=== PATIENT | female | born 1950 | race Caucasian/White ===

== ENCOUNTER 2020-12-07 10:04 | Outpatient (REF) | payer MEDICARE, SELFPAY ==
--- NOTE | ~2020-12-07 | MM_ITS ---
EXAMINATION: MM SCREENING DIGITAL BREAST TOMOSYNTHESIS, BILATERAL CLINICAL INFORMATION: Screening. Asymptomatic. The lifetime risk of breast cancer based on the Tyrer-Cuzick Model is 8%. COMPARISON: Mammography: 12/02/2019, 11/03/2018, 10/16/2017 TECHNIQUE: Digital breast tomosynthesis is performed in both the craniocaudal and mediolateral oblique views along with computer-aided detection (CAD). Synthesized 2D images are generated from the tomosynthesis. Additional left view is provided. FINDINGS: There are scattered areas of fibroglandular density (ACR BI-RADS breast composition Category b). There is fine fibronodular parenchymal pattern similar to prior exams. There is no developing density or interval significant mass or architectural abnormality. No abnormal calcifications. There is a biopsy clip marker again noted anterior upper outer right breast. No significant changes. MM/MM tomosynthesis screening BI IMPRESSION: No mammographic evidence of malignancy. ASSESSMENT: BI-RADS 2: Benign RECOMMENDATION: Routine annual mammography screening. This patient's information was entered into a reminder system with a target due date for their next mammogram.
== END 2020-12-07 10:05 | disposition home or self-care (01) ==
LOC: HO.MAMMO 10:04
PROVIDERS: Visit Provider Nurse Practitioner Family
DX: Z12.31 Encounter for screening mammogram for malignant neoplasm of breast (principal)
CPT/HCPCS: 77063; 77067

== ENCOUNTER 2021-09-22 13:22 | Outpatient (REF) | payer MEDICARE, SELFPAY | END 2021-09-22 13:23 | disposition home or self-care (01) | LOC: HO.HMGCLDS 13:22 | PROVIDERS: Visit Provider Internal Medicine | DX: Z20.822 Contact with and (suspected) exposure to COVID-19 (principal) | CPT/HCPCS: C9803; U0003; U0005 ==

== ENCOUNTER 2023-08-25 13:02 | Outpatient (AMB) | payer MEDICARE, SELFPAY ==
--- NOTE | 2023-08-25 13:18 | MHC.OFFVIS ---
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 She reports with her daughter in law Essence. Pt reports she has unsteady gait. She's had a fall in the last six months. She reports minimal tremors. Her daughter in law states she has seen a significant decline in strength, but there is an increase in confusion and hallucinations. Allergies nickel [NICKEL] Allergy (Intermediate, Unverified 08/25/23 13:19) SWELLING, ITCHY ON CONTACT kendell Allergy (Unknown, Uncoded 08/25/23 13:19) rash, inflamation Medication List - Last Reconciled 08/25/23 by Samina Hurtado MD apixaban (Eliquis) 5 mg PO BID B-complex with vitamin C 1 tab PO DAILY carbidopa-levodopa 25-100 mg 1 tab PO QID cetirizine (Zyrtec) 10 mg PO DAILY PRN cholecalciferol (vitamin D3) 125 mcg PO DAILY clonazepam 0.5 mg PO DAILY coenzyme Q10 (Ultra CoQ10) 75 mg PO DAILY docusate sodium (Dulcolax Stool Softener (docusate)) 100 mg PO DAILY magnesium glycinate mg PO metoprolol tartrate 25 mg PO BID polyethylene glycol 3350 (Miralax) 17 grams PO DAILY simvastatin 10 mg PO DAILY vit C,E,Zn,Kf-xeecr0-fry-zeax 250-2.5-0.5 mg caps PO HPI HPI Comments History of Present Illness Details 73y/o right handed female comes for further management of Parkinsonism. Her daughter noticed slowness about 2 years ago and suspected parkinsons. she was seen by a neurologist and diagnosed with parkinsons. she was started on carbidopa/levodopa and was helping . But in the past 3-4 months looks like she is progressing . she was also diagnosed with cognitive difficulty. she denies any tremors she has short term memory issues for over 6 years and has progressed.She has word finding difficulties. She also has rare hallucinations - 2-3 years- more in the evenings, usually when she has intercurrnet infection SLeep- she has sleep talking and screams and yells. she feels like she did not have a sense of smell for many years. Mild depression or anxiety speech- softer. she did [facility] program She has drooling at night. she had swallowing eval and was told normal. Buts he has trouble chewing and swallowing. Handwriting is poor. she needs help with dressing and showering.she started having falls atleast 2 years ago. she had hip fracture over 1 year ago.she uses a walker now. Her gait was slow prior to that. [facility] Medical History (Updated 08/25/23 @ 15:13 by Samina Hurtado MD) REM behavioral disorder Hallucinations Cognitive change Falls Hyperlipidemia HTN (hypertension) Heart disease Atrial fibrillation Parkinsonism Surgical History (Updated 08/25/23 @ 13:36 by Meghana Tee CMA) History of cataract surgery History of hip replacement Hx of cholecystectomy Family History Mother No problems noted. Social History (Updated 08/25/23 @ 13:38 by Meghana Tee CMA) Caregiver staying overnight: Yes Housing: House Alcohol intake: former Patient Tobacco Use Status: Never used Tobacco Review of Systems Const Reports difficulty sleeping Neuro Reports confusion and Reports memory loss Psych Reports confusion and Reports memory loss Physical Exam Vital Signs: Last Vital Signs Pulse 63 08/25/23 13:20 Resp 17 08/25/23 13:20 BP 108/72 08/25/23 13:20 Pulse Ox 98 08/25/23 13:20 Oxygen Delivery Method Room Air 08/25/23 13:20 BMI result Body Mass Index 34.1 Const General: cooperative, comfortable, no acute distress and confusion Nutritional Appearance: obese Orientation/consciousness: patient oriented x3 and confusion Neuro Other: severe bradykinesia Moderately decreased blink and facial expression small steps, slow , decreased arm swings bilaterally - can walk without walker General: patient oriented x3, tone normal, moves all extremities, no focal motor deficits and confusion Cranial nerves: Yes Bilaterally intact EOM present, Yes Nystagmus not present, Yes Normal facial strength present and Yes Midline tongue present Motor exam (neuro): 5/5 motor strength present throughout and Normal motor muscle tone present throughout Deep tendon reflexes (DTR's): Right triceps reflex intensity grade: 1+, Left triceps reflex intensity grade: 1+, Rt Biceps (C5, C6): 1+, Left biceps reflex intensity grade: 1+, Right brachioradialis reflex intensity grade: 1+, Left brachioradialis reflex intensity grade: 1+, Right patellar reflex intensity grade: 1+ and Left patellar reflex intensity grade: 1+ Coordination: [id number] test normal Results Reviewed Results Reviewed: TELLO scan- January 2022 abnormal -decreased striatal activity Assessment & Plan Assessment & Plan (1) 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 Code(s): G20.C - Parkinsonism, unspecified (2) Cognitive change: Code(s): R41.89 - Other symptoms and signs involving cognitive functions and awareness (3) Hallucinations: Comment: rare and mild Code(s): R44.3 - Hallucinations, unspecified (4) REM behavioral disorder: Code(s): G47.52 - REM sleep behavior disorder Plan I will trial her on higher dose of sinemet 25/100 5 times a day Home PT and OT and clonazepam 0.5mg qhs for RBD Orders: [facility]errals [facility] Referral G20.C - Parkinsonism, unspecified Medications: New carbidopa-levodopa 25-100 mg 1 tab PO .5 times a day 150 tabs 5RF Coding Level of Care Code New Pt Level 4 (02889) Diagnoses Parkinsonism G20.C Cognitive change R41.89 Hallucinations R44.3 REM behavioral disorder G47.52
[2023-08-25 13:20] VITALS: BP 108/72; PULSE 63; RESP 17; O2SAT 98; BMI 34.1
== END 2023-08-25 14:16 | disposition home or self-care (01) ==
PROVIDERS: Visit Provider Psychiatry & Neurology Neurology
DX: G20.C Parkinsonism, unspecified (principal); R41.89 Other symptoms and signs involving cognitive functions and awareness; R44.3 Hallucinations, unspecified; G47.52 REM sleep behavior disorder
CPT/HCPCS: 99204

== ENCOUNTER → 2023-08-25 13:02 | Outpatient (BNVA) | payer MEDICARE, SELFPAY | PROVIDERS: Visit Provider Psychiatry & Neurology Neurology ==

== ENCOUNTER 2023-10-05 15:58 | Outpatient (REF) | payer MEDICARE, SELFPAY ==
[2023-10-05 16:02] LABS: MANUAL DIFF FLAG NO
[2023-10-05 16:06] LABS: Basophils Percent Auto 0.7 % (0-2); Eosinophils Absolute Auto 0.1 X10*3/uL (0.0-0.4); Eosinophils Percent Auto 1.1 % (0-4); Hemoglobin 12.6 g/dl (12.0-16.0); Imm Gran Abs Auto 0.04 X10*3/uL (0.00-0.03); Imm Gran Pct Auto 0.7 % (0.0-0.4); Lymphocytes Absolute Auto 1.4 X10*3/uL (1.2-4.9); Lymphocytes Percent Auto 25.6 % (20-40); Mean Corpuscular HGB Conc 33.2 g/dl (31.0-35.0); Mean Corpuscular Hemoglobin 28.6 pg (27.0-33.0); Mean Corpuscular Volume 86.4 fL (80.0-98.0); Mean Platelet Volume 10.4 fL (9.4-12.3); Monocytes Absolute Auto 0.4 X10*3/uL (0.1-1.2); Monocytes Percent Auto 7.6 % (2-11); Neutrophils Absolute Auto 3.5 x10*3/uL (2.0-8.3); Neutrophils Percent Auto 64.3 % (45-73); Platelet Count 187 X10*3/uL (160-400); White Blood Count 5.4 X10*3/uL (4.8-10.8)
[2023-10-05 16:28] LABS: Anion Gap 12 (12-20); Blood Urea Nitrogen 15 mg/dL (9-16); Calcium 8.6 mg/dL (8.4-10.2); Carbon Dioxide 26 mmol/L (22-29); Chloride 108 mmol/L (96-108); Estimated Glomerular Filt Rate > 60; Glucose Random 107 mg/dL (60-115); Potassium 3.9 mmol/L (3.3-5.1); Sodium 142 mmol/L (135-145)
== END 2023-10-05 15:59 | disposition home or self-care (01) ==
LOC: HO.HVNA 15:58
PROVIDERS: Visit Provider Nurse Practitioner Family
DX: R49.0 Dysphonia (principal); R41.0 Disorientation, unspecified; R53.83 Other fatigue
CPT/HCPCS: 36415; 80048; 85025

== ENCOUNTER 2023-10-11 12:20 | Outpatient (REF) | payer MEDICARE, SELFPAY ==
[2023-10-11 16:08] LABS: MANUAL DIFF FLAG NO
[2023-10-11 16:14] LABS: Basophils Percent Auto 0.6 % (0-2); Eosinophils Absolute Auto 0.1 X10*3/uL (0.0-0.4); Eosinophils Percent Auto 1.8 % (0-4); Hematocrit 38.8 % (37.0-47.0); Hemoglobin 12.8 g/dl (12.0-16.0); Imm Gran Abs Auto 0.03 X10*3/uL (0.00-0.03); Imm Gran Pct Auto 0.6 % (0.0-0.4); Lymphocytes Absolute Auto 1.3 X10*3/uL (1.2-4.9); Mean Corpuscular Hemoglobin 28.7 pg (27.0-33.0); Mean Platelet Volume 10.6 fL (9.4-12.3); Monocytes Absolute Auto 0.4 X10*3/uL (0.1-1.2); Monocytes Percent Auto 7.6 % (2-11); Neutrophils Absolute Auto 3.1 x10*3/uL (2.0-8.3); Neutrophils Percent Auto 63.4 % (45-73); Platelet Count 184 X10*3/uL (160-400); Red Blood Count 4.46 X10*6/uL (4.20-5.50); Red Cell Distribution Width 13.2 % (11.0-16.0); White Blood Count 4.9 X10*3/uL (4.8-10.8)
[2023-10-11 16:23] LABS: Anion Gap 12 (12-20); Blood Urea Nitrogen 19 mg/dL (9-16); Calcium 8.7 mg/dL (8.4-10.2); Carbon Dioxide 25 mmol/L (22-29); Chloride 111 mmol/L (96-108); Estimated Glomerular Filt Rate > 60; Glucose Random 94 mg/dL (60-115); Potassium 4.2 mmol/L (3.3-5.1); Sodium 144 mmol/L (135-145)
== END 2023-10-11 12:21 | disposition home or self-care (01) ==
LOC: HO.HVNA 12:20
PROVIDERS: PCP Nurse Practitioner Family; Visit Provider Psychiatry & Neurology Neurology
DX: R49.0 Dysphonia (principal); R41.0 Disorientation, unspecified; R53.83 Other fatigue
CPT/HCPCS: 36415; 80048; 85025

== ENCOUNTER 2023-10-14 12:00 | Outpatient (REF) | payer MEDICARE, SELFPAY ==
--- NOTE | ~2023-10-14 | XR_ITS ---
EXAMINATION: XR CHEST CLINICAL INFORMATION: Acute cough COMPARISON: None available. TECHNIQUE: 2 views of the chest were obtained. FINDINGS: The lungs are well expanded and clear. No pleural effusion. There is mild enlargement of the cardiac silhouette. The bones are diffusely demineralized. There is mild curve of the thoracic spine, convex left. XR/XR chest 2V IMPRESSION: No acute cardiopulmonary disease. Mild cardiomegaly.
== END 2023-10-14 12:01 | disposition home or self-care (01) ==
LOC: HO.XRAY 12:00
PROVIDERS: PCP Nurse Practitioner Family; Visit Provider Nurse Practitioner Adult Health
DX: R05.1 Acute cough (principal)
CPT/HCPCS: 71046

== ENCOUNTER 2023-10-22 09:44 | Outpatient (REF) | payer MEDICARE, SELFPAY ==
--- NOTE | ~2023-10-22 | MR_ITS ---
MRI OF THE BRAIN WITHOUT IV CONTRAST INDICATION: Parkinsonism. COMPARISON: None available. TECHNIQUE: Multiplanar multisequence MR imaging of the brain was obtained without IV contrast. FINDINGS: There is no hydrocephalus, extra-axial surface collection, or herniation. There is global cerebral volume loss and there is mild chronic microangiopathy. 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 The major flow voids at the skull base are preserved. There is no acute infarct on diffusion-weighted imaging. There is no intracranial hemorrhage on the gradient recalled echo acquisition. The midline structures are normal. The cerebellar tonsils are normally positioned. The cerebellum and brainstem are normal. The craniocervical junction is normal. Osseous marrow signal intensity is homogenous. Sebaceous cyst within the right occipital scalp. MR/MR head/brain wo con IMPRESSION: - No acute intracranial findings. 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 - There is global cerebral volume loss and there is mild chronic microangiopathy.
== END 2023-10-22 09:45 | disposition home or self-care (01) ==
LOC: HO.MRI 09:44
PROVIDERS: PCP Nurse Practitioner Family; Visit Provider Psychiatry & Neurology Neurology
DX: G20.C Parkinsonism, unspecified (principal)
CPT/HCPCS: 70551

== ENCOUNTER 2023-11-02 11:20 | Emergency (ER) | payer MEDICARE, SELFPAY ==
--- NOTE | ~2023-11-02 | XR_ITS ---
EXAMINATION: XR CHEST CLINICAL INFORMATION: Weakness. Cough. COMPARISON: Chest x-ray October 14, 2023 TECHNIQUE: 2 views of the chest were obtained. FINDINGS: Lungs are clear. No pulmonary vascular congestion. There is no pleural effusion. The heart size is normal. The cardiac and mediastinal contours are normal. There are calcifications of the thoracic aorta. There are multilevel degenerative changes of dorsal spine. XR/XR chest 2V IMPRESSION: Unremarkable examination.
[2023-11-02 12:22] VITALS: BP 100/60; BP 99/62; PULSE 70; RESP 18; TEMP 37.1; O2SAT 93; O2SAT 96; BMI 36.6
--- NOTE | 2023-11-02 12:36 | ED.WEAKNESS ---
HPI - Weakness General Chief complaint: Weakness Stated complaint: +COVID,WEAK,NOT EATING PER EMS Related Data Home Medications Medication Instructions Recorded Confirmed B-complex with vitamin C 1 tab PO DAILY 08/25/23 08/25/23 apixaban 5 mg tablet (Eliquis) 5 mg PO BID 08/25/23 08/25/23 cetirizine 10 mg capsule (Zyrtec) 10 mg PO DAILY PRN 08/25/23 08/25/23 cholecalciferol (vitamin D3) 125 125 mcg PO DAILY 08/25/23 08/25/23 mcg (5,000 unit) capsule clonazepam 0.5 mg tablet 0.5 mg PO DAILY 08/25/23 08/25/23 coenzyme Q10 75 mg capsule (Ultra 75 mg PO DAILY 08/25/23 08/25/23 CoQ10) docusate sodium 100 mg capsule 100 mg PO DAILY 08/25/23 08/25/23 (Dulcolax Stool Softener (docusate)) magnesium glycinate mg PO 08/25/23 08/25/23 metoprolol tartrate 25 mg tablet 25 mg PO BID 08/25/23 08/25/23 polyethylene glycol 3350 17 17 g PO DAILY 08/25/23 08/25/23 gram/dose oral powder (Miralax) simvastatin 10 mg tablet 10 mg PO DAILY 08/25/23 08/25/23 vit cap PO 08/25/23 08/25/23 C,E,zinc,Xq-dysxa-3-lutein-zeaxanthin 250 mg-2.5 mg-0.5 mg capsule Previous Rx's Medication Instructions Recorded carbidopa 25 mg-levodopa 100 mg 1 tab PO .5 times a day #150 tabs 08/25/23 tablet Allergies Allergy/AdvReac Type Severity Reaction Status Date / Time nickel [NICKEL] Allergy Intermediate SWELLING, Unverified 08/25/23 13:19 ITCHY ON CONTACT kendell Allergy Unknown rash, Uncoded 08/25/23 13:19 inflamation PMFSH Past Medical History Onset Date is defined in the Problem List Problems that require an onset date and time if occurred within 24 hrs of arrival to the ED Aortic Dissection and Rupture; Neurologic impairment; Cardiopulmonary Arrest; Endotracheal Intubation; Insertion or Replacement of Mechanical Circulatory Assist Device Medical History (Updated 10/29/23 @ 18:01 by IVELISSE Madrid) REM behavioral disorder Hallucinations Cognitive change Falls Hyperlipidemia HTN (hypertension) Heart disease Atrial fibrillation Parkinsonism Surgical History (Updated 08/25/23 @ 13:36 by Meghana Tee CMA) History of cataract surgery History of hip replacement Hx of cholecystectomy Family History Family History Mother No problems noted. Social History Social History (Updated 08/25/23 @ 13:38 by Meghana Tee CMA) Housing: House Alcohol intake: former Patient Tobacco Use Status: Never used Tobacco Physical Exam Vital Signs: Vital Signs: Last Vital Signs Temp 98.7 F 11/02/23 12:22 Pulse 70 11/02/23 12:22 Resp 18 11/02/23 12:22 BP 99/62 11/02/23 12:22 Pulse Ox 93 11/02/23 12:22 O2 Del Method Room Air 11/02/23 12:22 BMI result Body Mass Index 36.6 Course Course Course Narrative: This is an RME: Additional HPI, ROS, PE not included below will be deferred to primary provider. This is a 58-pycg-unw-female, hx of parkinsons, afib on eliquis, incontinence, nonambulatory, presenting to the emergency department for evaluation weakness. Patient was diagnosed with COVID last week. She has had increased Global weakness. also endorsing cough, hoarseness. Reports decreased appetite. Plan: labs, EKG, chest x-ray, further ER evaluation needed. Discharge Plan Discharge Prescriptions: No Action B-complex with vitamin C Tablet 1 tab PO DAILY magnesium glycinate 100 mg magnesium capsule PO cholecalciferol (vitamin D3) 125 mcg (5,000 unit) capsule 125 mcg PO DAILY docusate sodium [Dulcolax Stool Softener (dss)] 100 mg capsule 100 mg PO DAILY polyethylene glycol 3350 [Miralax] 17 gram/dose powder 17 g PO DAILY vit C,E,Zn,Us-jbvub3-rqj-zeax 250-2.5-0.5 mg capsule PO Zyrtec 10 mg capsule 10 mg PO DAILY PRN Ultra CoQ10 75 mg capsule 75 mg PO DAILY Eliquis 5 mg tablet 5 mg PO BID simvastatin 10 mg tablet 10 mg PO DAILY metoprolol tartrate 25 mg tablet 25 mg PO BID clonazepam 0.5 mg tablet 0.5 mg PO DAILY carbidopa-levodopa 25-100 mg tablet 1 tab PO .5 times a day Qty: 150 5RF
--- NOTE | 2023-11-02 12:39 | ECG_ITS ---
Test Reason : CHEST PAIN Blood Pressure : / mmHG Vent. Rate : 065 BPM Atrial Rate : 065 BPM P-R Int : 154 ms QRS Dur : 072 ms QT Int : 390 ms P-R-T Axes : 048 004 010 degrees QTc Int : 405 ms Normal sinus rhythm Low voltage QRS Nonspecific T wave abnormality Abnormal ECG When compared with ECG of 11-APR-2003 14:52, T wave inversion now evident in Anterior leads Referred By: Li Diana Electronically Signed By:Tj Dumont
[2023-11-02 13:31] LABS: MANUAL DIFF FLAG NO
[2023-11-02 13:33] LABS: Basophils Percent Auto 0.7 % (0-2); Eosinophils Absolute Auto 0.1 X10*3/uL (0.0-0.4); Eosinophils Percent Auto 1.4 % (0-4); Hemoglobin 13.5 g/dl (12.0-16.0); Imm Gran Abs Auto 0.02 X10*3/uL (0.00-0.03); Imm Gran Pct Auto 0.5 % (0.0-0.4); Lymphocytes Absolute Auto 1.1 X10*3/uL (1.2-4.9); Lymphocytes Percent Auto 24.7 % (20-40); Mean Corpuscular HGB Conc 33.8 g/dl (31.0-35.0); Mean Corpuscular Hemoglobin 28.8 pg (27.0-33.0); Mean Corpuscular Volume 85.5 fL (80.0-98.0); Mean Platelet Volume 9.6 fL (9.4-12.3); Monocytes Absolute Auto 0.6 X10*3/uL (0.1-1.2); Monocytes Percent Auto 14.3 % (2-11); Neutrophils Absolute Auto 2.6 x10*3/uL (2.0-8.3); Neutrophils Percent Auto 58.4 % (45-73); Platelet Count 165 X10*3/uL (160-400); Red Blood Count 4.68 X10*6/uL (4.20-5.50); Red Cell Distribution Width 13.2 % (11.0-16.0); White Blood Count 4.4 X10*3/uL (4.8-10.8)
[2023-11-02 13:49] LABS: Alanine Aminotransferase 17 U/L (0-31); Albumin Level 3.9 g/dL (3.5-5.0); Alkaline Phosphatase 88 U/L (39-117); Anion Gap 12 (12-20); Aspartate Amino Transferase 19 U/L (5-31); Bilirubin Direct < 0.2 mg/dL (0.0-0.5); Bilirubin Total 0.2 mg/dL (0.0-1.0); Blood Urea Nitrogen 26 mg/dL (9-16); Calcium 9.4 mg/dL (8.4-10.2); Carbon Dioxide 28 mmol/L (22-29); Chloride 108 mmol/L (96-108); Creatinine Clr Calc Pharmacy 60.8; Estimated Glomerular Filt Rate > 60; Glucose Random 100 mg/dL (60-115); Potassium 3.9 mmol/L (3.3-5.1); Sodium 144 mmol/L (135-145); Total Protein 7.4 g/dL (6.5-8.0)
[2023-11-02 14:01] LABS: Troponin-I High Sensitivity < 2.7 ng/L (<3.5-17.0)
[2023-11-02 14:09] LABS: Influenza A PCR NEGATIVE (Negative); Influenza B PCR NEGATIVE (Negative); Resp Syncy Virus RNA Qual PCR NEGATIVE (Negative); SARS COV2 PCR INHOUSE POSITIVE (Negative)
[2023-11-02 17:56] VITALS: BP 131/73; PULSE 69; RESP 18; TEMP 36.6; O2SAT 96
--- NOTE | 2023-11-02 17:58 | PC.NURSE ---
Patient tested positive for COVID on wednesday and since then has been feeling increasingly weak. Patient spoke with her PCP today who recommended that the patient come in for fluids. Patient resting in wheelchair at this time calm and cooperative with staff. Patient speaking in full sentences, breathing evenly, no s/s of distress at this time.
[2023-11-03] VITALS: O2SAT 96
--- NOTE | 2023-11-03 00:34 | ED_ITS ---
HPI - General Adult General Chief complaint: Weakness Stated complaint: +COVID,WEAK,NOT EATING PER EMS Time Seen by Provider: 11/03/23 00:11 History of Present Illness HPI narrative: Patient is a 73-year-old female with a history of atrial fibrillation currently on Eliquis history of Parkinson's on carbidopa levodopa. Presented today with having coughing congestion generalized malaise. Patient vaccinated for COVID x2 with a booster. Patient from home. Decreased p.o. intake. [place] extremely tired. No nausea no vomiting. Related Data Home Medications Medication Instructions Recorded Confirmed B-complex with vitamin C 1 tab PO DAILY 08/25/23 08/25/23 apixaban 5 mg tablet (Eliquis) 5 mg PO BID 08/25/23 08/25/23 cetirizine 10 mg capsule (Zyrtec) 10 mg PO DAILY PRN 08/25/23 08/25/23 cholecalciferol (vitamin D3) 125 125 mcg PO DAILY 08/25/23 08/25/23 mcg (5,000 unit) capsule clonazepam 0.5 mg tablet 0.5 mg PO DAILY 08/25/23 08/25/23 coenzyme Q10 75 mg capsule (Ultra 75 mg PO DAILY 08/25/23 08/25/23 CoQ10) docusate sodium 100 mg capsule 100 mg PO DAILY 08/25/23 08/25/23 (Dulcolax Stool Softener (docusate)) magnesium glycinate mg PO 08/25/23 08/25/23 metoprolol tartrate 25 mg tablet 25 mg PO BID 08/25/23 08/25/23 polyethylene glycol 3350 17 17 g PO DAILY 08/25/23 08/25/23 gram/dose oral powder (Miralax) simvastatin 10 mg tablet 10 mg PO DAILY 08/25/23 08/25/23 vit cap PO 08/25/23 08/25/23 C,E,zinc,Sa-lwdxb-0-lutein-zeaxanthin 250 mg-2.5 mg-0.5 mg capsule Previous Rx's Medication Instructions Recorded carbidopa 25 mg-levodopa 100 mg 1 tab PO .5 times a day #150 tabs 08/25/23 tablet Allergies Allergy/AdvReac Type Severity Reaction Status Date / Time nickel [NICKEL] Allergy Intermediate SWELLING, Unverified 08/25/23 13:19 ITCHY ON CONTACT kendell Allergy Unknown rash, Uncoded 08/25/23 13:19 inflamation Review of Systems 2 Review of Systems: Positive coughing congestion upper respiratory symptoms Yes all other systems are reviewed and are negative [facility] Past Medical History Attestation statement: The following information was validated with the patient. Onset Date is defined in the Problem List Problems that require an onset date and time if occurred within 24 hrs of arrival to the ED Aortic Dissection and Rupture; Neurologic impairment; Cardiopulmonary Arrest; Endotracheal Intubation; Insertion or Replacement of Mechanical Circulatory Assist Device Medical History REM behavioral disorder Hallucinations Cognitive change Falls Hyperlipidemia HTN (hypertension) Heart disease Atrial fibrillation Parkinsonism Surgical History History of cataract surgery History of hip replacement Hx of cholecystectomy Family History Family History Mother No problems noted. Social History Social History Housing: House Alcohol intake: former Patient Tobacco Use Status: Never used Tobacco Advance Directives: No Advance Directives Information Provided: Yes Physical Exam ED Vital Signs: Vital Signs - 24 hr 11/02/23 12:22 11/02/23 17:56 Temperature 98.7 F 97.8 F Pulse Rate 70 69 Respiratory Rate 18 18 Blood Pressure 99/62 131/73 Pulse Oximetry 93 96 Oxygen Delivery Method Room Air Room Air BMI result Body Mass Index 36.6 Appearance: Alert. Oriented X3. No acute distress. Eyes: Pupils equal, round and reactive to light. ENT: Pharynx normal. Neck: Normal inspection. Neck supple. No lymph nodes noted. No crepitus CVS: Normal heart rate and rhythm. Pulses normal. Normal S1 and S2 Respiratory: No respiratory distress. Breath sounds normal. No Wheezing. No rales Abdomen: Soft and nontender. No rigidity. No distention. good BS x4 Skin: Skin warm and dry. Normal skin color. Normal skin turgor. Extremities: No lower extremity edema. Neurovascular intact to all extremities. No Lacerations. No Rash Neuro: Oriented X 3. No motor deficit. No sensory deficit. Moving all extermities. No slurred speech Medical Decision Making Medical Decision Making [facility] Narrative: Patient well-appearing O2 sat is 96% on room air. Lungs are clear. My interpretation patient's chest x-ray was grossly negative for any acute evidence of pneumonia. No pneumothorax. My interpretation patient's EKG showed a sinus rhythm heart rate is 65 MN QRS QTC within normal limits there is nonspecific diffuse T-wave flattening noted. Patient's COVID test came back positive. Likely the cause of patient's generalized malaise coughing upper respiratory symptoms. Her O2 sat is normal she is vaccinated. A long discussion was made with patient concerning the pros and cons of Paxlovid over it in setting of patient being on multitude of medication. Differential Diagnosis Differential Diagnoses: The differential diagnosis associated with the presentation includes COVID flu RSV dehydration Admission/Observation Consideration of admission/observation: Escalation of care including admission/observation considered Patient will rehydrate at home. Lab Data [facility] Lab Attestation statement: I reviewed the patient's lab results. 11/02/23 13:22 11/02/23 13:22 Labs: Lab Results 11/02/23 Range/Units 13:22 WBC 4.4 L (4.8-10.8) X10*3/uL RBC 4.68 (4.20-5.50) X10*6/uL Hgb 13.5 (12.0-16.0) g/dl Hct 40.0 (37.0-47.0) % MCV 85.5 (80.0-98.0) fL MCH 28.8 (27.0-33.0) pg MCHC 33.8 (31.0-35.0) g/dl RDW 13.2 (11.0-16.0) % Plt Count 165 (160-400) X10*3/uL MPV 9.6 (9.4-12.3) fL Immature Gran % (Auto) 0.5 H (0.0-0.4) % Neut % (Auto) 58.4 (45-73) % Lymph % (Auto) 24.7 (20-40) % [place] % (Auto) 14.3 H (2-11) % Eos % (Auto) 1.4 (0-4) % Baso % (Auto) 0.7 (0-2) % Lymph # (Auto) 1.1 L (1.2-4.9) X10*3/uL [place] # (Auto) 0.6 (0.1-1.2) X10*3/uL Eos # (Auto) 0.1 (0.0-0.4) X10*3/uL Baso # (Auto) 0.0 (0.0-0.2) X10*3/uL Abs Immat Gran (auto) 0.02 (0.00-0.03) X10*3/uL Absolute Neuts (auto) 2.6 (2.0-8.3) x10*3/uL Absolute Nucleated RBC 0.000 (0.0-0.012) X10*3/uL Nucleated RBC % (auto) 0.0 (0.0-0.2) /100WBC Sodium 144 (135-145) mmol/L Potassium 3.9 (3.3-5.1) mmol/L Chloride 108 (96-108) mmol/L Carbon Dioxide 28 (22-29) mmol/L Anion Gap 12 (12-20) BUN 26 H (9-16) mg/dL Creatinine 0.85 (0.5-1.4) mg/dL Estim Creat Clear Calc 60.8 Estimated GFR > 60 Random Glucose 100 (60-115) mg/dL Calcium 9.4 D (8.4-10.2) mg/dL Total Bilirubin 0.2 (0.0-1.0) mg/dL Direct Bilirubin < 0.2 (0.0-0.5) mg/dL AST 19 (5-31) U/L ALT 17 (0-31) U/L Alkaline Phosphatase 88 (39-117) U/L Troponin I High Sens < 2.7 (<3.5-17.0) ng/L Total Protein 7.4 (6.5-8.0) g/dL Albumin 3.9 (3.5-5.0) g/dL Influenza Type A (PCR) NEGATIVE (Negative) Influenza Type B (PCR) NEGATIVE (Negative) RSV RNA Qual (PCR) NEGATIVE (Negative) SARS-CoV-2 RNA (RT-PCR) POSITIVE A (Negative) Independent Interpretation I performed an independent interpretation of an: EKG (EKG showed a sinus pattern heart rate is 60 MN QRS QTC within normal limits is diffuse T-wave flattening noted) and Plain X-Ray (Chest x-ray was negative) Radiology Impression Discussion of test interpretation with radiology: I have reviewed the radiologist's reading. Chronic Conditions Parkinson's, atrial fibrillation Discharge Plan Discharge Clinical Impression: COVID Patient Disposition: Home, Self-Care Instructions: COVID-19 (Coronavirus Disease 2019) (ED) Prescriptions: No Action B-complex with vitamin C Tablet 1 tab PO DAILY magnesium glycinate 100 mg magnesium capsule PO cholecalciferol (vitamin D3) 125 mcg (5,000 unit) capsule 125 mcg PO DAILY docusate sodium [Dulcolax Stool Softener (dss)] 100 mg capsule 100 mg PO DAILY polyethylene glycol 3350 [Miralax] 17 gram/dose powder 17 g PO DAILY vit C,E,Zn,Yg-ewurs8-kvv-zeax 250-2.5-0.5 mg capsule PO Zyrtec 10 mg capsule 10 mg PO DAILY PRN Ultra CoQ10 75 mg capsule 75 mg PO DAILY Eliquis 5 mg tablet 5 mg PO BID simvastatin 10 mg tablet 10 mg PO DAILY metoprolol tartrate 25 mg tablet 25 mg PO BID clonazepam 0.5 mg tablet 0.5 mg PO DAILY carbidopa-levodopa 25-100 mg tablet 1 tab PO .5 times a day Qty: 150 5RF Referrals: Physician,Gale J [Primary Care Provider] - 11/05/23
--- NOTE | 2023-11-03 01:57 | PC.NURSE ---
pt ambulated with steady gait. daughter Nohelia called and reviewed pt care and that she is ready for pickling grader
== END 2023-11-03 02:00 | disposition home or self-care (01) ==
PROVIDERS: Physician Assistant Medical; Emergency Provider Emergency Medicine Emergency Medical Services
DX: U07.1 COVID-19 (principal); R07.9 Chest pain, unspecified; R05.9 Cough, unspecified; R53.1 Weakness; I48.91 Unspecified atrial fibrillation; G20.A1 Parkinson's disease without dyskinesia, without mention of fluctuations; I10 Essential (primary) hypertension; E78.5 Hyperlipidemia, unspecified; Z79.01 Long term (current) use of anticoagulants
CPT/HCPCS: 0241U; 36415; 71046; 80048; 80076; 84484; 85025; 93005; 99283; 99284

== ENCOUNTER → 2023-11-02 12:39 | Outpatient (BNV) | payer MEDICARE, SELFPAY | PROVIDERS: Visit Provider Internal Medicine Cardiovascular Disease | DX: R94.31 Abnormal electrocardiogram [ECG] [EKG] (principal) | CPT/HCPCS: 93010 ==

== ENCOUNTER 2024-01-11 09:08 | Outpatient (AMB) | payer MEDICARE, SELFPAY ==
--- NOTE | 2024-01-11 09:10 | MHC.OFFVIS ---
Intake Vital Signs 01/11/24 09:11 Height 5 ft 2 in BP 112/68 Blood Pressure Location Rt brachial Position Sitting Pulse 72 Pulse Source Pulse Oximeter Pulse Oximetry (%) 92 Oxygen Delivery Method Room Air Intake Visit Reasons: 3month follow up Parkinsons-LVM Intake Note: Pt presents for a 4 month follow up for cognitive changes. Philosophy Instructor Required: No Allergies nickel [NICKEL] Allergy (Intermediate, Unverified 01/11/24 09:10) SWELLING, ITCHY ON CONTACT kendell Allergy (Unknown, Uncoded 01/11/24 09:10) rash, inflamation HPI HPI Comments History of Present Illness Details 73y/o right handed female comes for follow up of Parkinsonism. she tested positive for COVID Oct 30 and she was very weak and could not stand or walk. she went to ER , CXR was negative for pneumonia .she had televisit with her PCP - was given antibiotics, prednisone for persistent cough, then she had UTI which was treated with antibiotics. She has been better for past 2 weeks but still has dyspnea with exercise. Parkinsons has been same.she still has sundowning. when she had COVID her hallucinations worsened but better now. She could not take clonazepam as it was very sedating still has RBD Previous History-Her daughter noticed slowness about 2 years ago and suspected parkinsons. she was seen by a neurologist and diagnosed with parkinsons. she was started on carbidopa/levodopa and was helping . But in the past 3-4 months looks like she is progressing . she was also diagnosed with cognitive difficulty. she denies any tremors she has short term memory issues for over 6 years and has progressed.She has word finding difficulties. She also has rare hallucinations - 2-3 years- more in the evenings, usually when she has intercurrnet infection SLeep- she has sleep talking and screams and yells. she feels like she did not have a sense of smell for many years. Mild depression or anxiety speech- softer. she did LOUD program She has drooling at night. she had swallowing eval and was told normal. But she has trouble chewing and swallowing. Handwriting is poor. she needs help with dressing and showering.she started having falls atleast 2 years ago. she had hip fracture over 1 year ago.she uses a walker now. Her gait was slow prior to that. [facility] Medical History REM behavioral disorder Hallucinations Cognitive change Falls Hyperlipidemia HTN (hypertension) Heart disease Atrial fibrillation Parkinsonism Surgical History History of cataract surgery History of hip replacement Hx of cholecystectomy Family History Mother No problems noted. Social History Caregiver staying overnight: Yes Housing: House Alcohol intake: former Patient Tobacco Use Status: Never used Tobacco Physical Exam Vital Signs: Last Vital Signs Pulse 72 01/11/24 09:11 BP 112/68 01/11/24 09:11 Pulse Ox 92 01/11/24 09:11 Oxygen Delivery Method Room Air 01/11/24 09:11 Const General: cooperative, comfortable and no acute distress Nutritional Appearance: obese Orientation/consciousness: patient oriented x3 Neuro Other: moderate bradykinesia Mildly decreased blink and facial expression with walker- slow , good stride and turning General: patient oriented x3, tone normal, moves all extremities and no focal motor deficits Cranial nerves: Yes Bilaterally intact EOM present, Yes Nystagmus not present, Yes Normal facial strength present and Yes Midline tongue present Motor exam (neuro): 5/5 motor strength present throughout and Normal motor muscle tone present throughout Coordination: [id number] test normal Assessment & Plan Assessment & Plan (1) 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
[2024-01-11 09:11] VITALS: BP 112/68; PULSE 72; O2SAT 92
== END 2024-01-11 09:50 | disposition home or self-care (01) ==
PROVIDERS: PCP Nurse Practitioner Family; Visit Provider Psychiatry & Neurology Neurology
DX: G20.C Parkinsonism, unspecified (principal); R41.89 Other symptoms and signs involving cognitive functions and awareness; R44.3 Hallucinations, unspecified; G47.52 REM sleep behavior disorder
CPT/HCPCS: 99214

== ENCOUNTER → 2024-01-11 09:08 | Outpatient (BNVA) | payer MEDICARE, SELFPAY | PROVIDERS: PCP Nurse Practitioner Family; Visit Provider Psychiatry & Neurology Neurology | DX: G20.C Parkinsonism, unspecified (principal); R41.89 Other symptoms and signs involving cognitive functions and awareness; R44.3 Hallucinations, unspecified; G47.52 REM sleep behavior disorder | CPT/HCPCS: 99212 ==

== ENCOUNTER 2024-02-24 14:13 | Outpatient (REF) | payer MEDICARE, SELFPAY | END 2024-02-24 14:14 | disposition home or self-care (01) | LOC: HO.LAB 14:13 | PROVIDERS: PCP Registered Nurse; Visit Provider Internal Medicine | DX: R06.02 Shortness of breath (principal); I48.0 Paroxysmal atrial fibrillation | CPT/HCPCS: 36415; 83880; 99202 ==

== ENCOUNTER 2024-02-24 14:13 | Outpatient (AMB) | payer MEDICARE, SELFPAY ==
[2024-02-24 14:20] VITALS: BP 140/64; PULSE 69; BMI 33.8
--- NOTE | 2024-02-24 14:20 | MHC.OFFVIS ---
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/josephine afib Pantomimist Required: No Accompanied by: Other Relationship Allergies nickel [NICKEL] Allergy (Intermediate, Unverified 01/11/24 09:10) SWELLING, ITCHY ON CONTACT kendell Allergy (Unknown, Uncoded 01/11/24 09:10) rash, inflamation Medication List - Last Reconciled 02/24/24 by Jr Spence MD apixaban (Eliquis) 5 mg PO BID B-complex with vitamin C 1 tab PO DAILY carbidopa-levodopa 25-100 mg 1 tab PO .5 times a day cetirizine (Zyrtec) 10 mg PO DAILY PRN cholecalciferol (vitamin D3) 125 mcg PO DAILY coenzyme Q10 (Ultra CoQ10) 75 mg PO DAILY docusate sodium (Dulcolax Stool Softener (docusate)) 100 mg PO DAILY ipratropium-albuterol 0.5 mg-3 mg(2.5 mg base)/3 mL 3 mL inhalation Q4-6H PRN magnesium glycinate mg PO metoprolol tartrate 25 mg PO BID polyethylene glycol 3350 (Miralax) 17 grams PO DAILY simvastatin 10 mg PO DAILY vit C,E,Zn,Ic-scohq3-wlu-zeax 250-2.5-0.5 mg caps PO HPI Comments Details: Barbara is here for consultation regarding possible cardiac etiology for her wheezing. [facility] documentation reviewed. It seems that in 2020, she had atrial fibrillation. Then went for a BULMARO but during the procedure, she spontaneously converted from atrial fibrillation to sinus rhythm. Hence did not have to have cardioversion. After that, she has been kept on beta-blockers and Eliquis. Few months back, it seems that she had COVID x2. After that, she has been having sensations of wheezing. Frequent coughing. Some shortness of breath. Additionally, sensations of swelling in her legs as well as abdomen. Apart from atrial fibrillation, no other cardiac history. She comes in a wheelchair. Minimal ambulation. Listed to have Parkinson's as well. [facility] Medical History REM behavioral disorder Hallucinations Cognitive change Falls Hyperlipidemia HTN (hypertension) Heart disease Atrial fibrillation Parkinsonism Surgical History History of cataract surgery History of hip replacement Hx of cholecystectomy Family History Mother No problems noted. Social History Caregiver staying overnight: Yes Housing: House Alcohol intake: former Patient Tobacco Use Status: Never used Tobacco Review of Systems Const Denies chills, Denies fatigue, Denies fever(s), Denies frequent falls, Denies weakness, Denies weight gain and Denies weight loss ENT Denies dizziness Card Denies chest pain, Denies leg edema, Denies lightheadedness, Denies palpitations, Denies dyspnea, Denies dyspnea on exertion and Denies orthopnea Resp Denies cough, Denies dyspnea and Denies dyspnea on exertion GI Denies bloating and Denies change in bowel habits Musc Denies muscle weakness, Denies numbness and Denies tingling Neuro Denies dizziness, Denies frequent falls, Denies numbness, Denies tingling and Denies weakness Endo Denies fatigue and Denies palpitations Physical Exam Vital Signs: Last Vital Signs Pulse 69 02/24/24 14:20 BP 140/64 H 02/24/24 14:20 BMI result Body Mass Index 33.8 Const General: comfortable and no acute distress Orientation/consciousness: patient oriented x3 HEENT Other: Unremarkable Head: Yes normal to inspection Neck Neck: Yes normal visual inspection Chest Chest palpation & inspection: normal inspection of the chest Resp Auscultation: clear to auscultation bilaterally Cardio Palpation: normal PMI Heart sounds: S1 normal heart sound present, S2 normal heart sound present, no gallops, no murmurs and no rubs GI Palpation (GI): Soft to palpation Back/Spine/Pelvis Other: unremarkable Skin General skin exam: no rashes or lesions noted Neuro General: patient oriented x3 Extrem Other: Trace to 1+ edema General: Yes normal to inspection Psych Mental Status: mental status grossly normal Assessment & Plan Assessment & Plan (1) Shortness of breath: Code(s): R06.02 - Shortness of breath Category: Medical Plan: Suspect more likely respiratory in nature. Unremarkable chest x-ray. From a cardiac standpoint, get an echocardiogram and cardiac BNP. Try low-dose diuretics. (2) Paroxysmal atrial fibrillation: Code(s): I48.0 - Paroxysmal atrial fibrillation Category: Medical Plan: Continue beta-blockers and Eliquis. Plan Discussed with daughter/[id number]-wn-gqv who came for appointment. Orders: Orders CA echo transthoracic complete Today R06.02 - Shortness of breath B Type Natriuretic Peptide Today I50.9 - Heart failure, unspecified Medications: New furosemide (Lasix) as needed for wheezing, leg/abdominal swelling. 20 mg PO DAILY PRN 90 tabs 3RF edema Coding Level of Care Code New Pt Level 4 (37276) Diagnoses Shortness of breath R06.02 Paroxysmal atrial fibrillation I48.0
== END 2024-02-24 14:45 | disposition home or self-care (01) ==
PROVIDERS: PCP Registered Nurse; Referring Provider Registered Nurse; Visit Provider Internal Medicine
DX: R06.02 Shortness of breath (principal); I48.0 Paroxysmal atrial fibrillation
CPT/HCPCS: 99204

== ENCOUNTER → 2024-03-22 14:57 | Outpatient (REF) | payer MEDICARE, SELFPAY ==
--- NOTE | 2024-03-22 15:08 | CA_ITS ---
Transthoracic Echocardiogram Patient (Last, First, Middle): Barbara Bagley E Gender: Female Date of : 1950 Age: 73 Procedure Date: 03/22/2024 Procedure Type: Transthoracic Echocardiogram Location: OP Height: 157.48 cm Weight: 83.92 kg BSA: 1.85 m2 Heart Rate: 74 bpm BP: 115 / 68 mmHg Denial Management Representative: SB Referring MD: Jr Spence MD Sales And Marketing Analyst: Sherwin Ricardo MD Symptoms: R06.02 - Shortness of breath Study Quality: Technically Difficult ECG Rhythm: Sinus Conclusions: - 1. Normal LV ejection fraction 55-60% with impaired relaxation filling pattern 2. Poorly visualized cardiac valves with cardiac valvular Doppler is within normal limits 3. Normal measured RV systolic pressure 4. Technically limited study Findings Procedure Information Contrast agent, definity, is being given per protocol without apparent complications. The quality of the study was technically difficult. The study quality is limited by patients body habitus. Left Ventricle The left ventricle was not well visualized. The visually estimated ejection fraction is between 55-60%. Regional wall motion abnormalities can not be excluded due to suboptimal endocardial definition. Spectral Doppler is indicative of an impaired relaxation filling pattern. E/E prime ratio is between 8 and 15 consistent with indeterminate filling pressures. Right Ventricle The right ventricle was not well visualized. Atria The left atrium was not well visualized. Interatrial shunt cannot be excluded. The right atrium was not well visualized. Aortic Valve The aortic valve was not well visualized. There is no aortic valve stenosis. There is no aortic valve regurgitation. Mitral Valve The mitral valve was not well visualized. There is no mitral valve regurgitation. There is no mitral valve stenosis. Pulmonic Valve The pulmonic valve was not well visualized. Tricuspid Valve The tricuspid valve was not well visualized. There is trace tricuspid valve regurgitation. The right ventricular systolic pressure is normal. The right ventricular systolic pressure is 30 mmHg. Normal right atrial pressure. There is no evidence of pulmonary hypertension. Great Vessels The pulmonary artery was not well visualized. Venous The inferior vena cava is normal in size and collapses greater than 50% with inspiration. Pericardium/Pleural The pericardium was not well visualized. Prior Study Comparison No prior study available for comparison. Measurements 2D Linear Measurements IVSd: 1.00 0.6-0.9/0.6-1.0 cm LVIDd: 4.86 3.9-5.3/4.2-5.9 cm LVIDd Index: 2.63 2.4-3.2/2.2-3.1 cm/m2 LVIDs: 2.97 2.0-3.6 cm LVPWd: 0.85 0.7-1.1 cm Ao Root: 1.00 2.1-3.5 cm LA Diam: 3.20 2.7-3.8/3.0-4.0 cm LAIDs Index: 1.73 1.5-2.3 cm/m2 LV Mass: 194.81 67-162/88-224 g LV Mass Index: 105.30 43-95/49-115 g/m2 LVOT Diam: 2.00 3.0+(-)1.3 cm 2D Systolic Function EF 4C: 59.00 >55% EF 2C: 59.00 >55% EF BiP: 58.30 >55% Mitral Valve MV Pk E: 0.77 MV PK A: 0.93 MV Decel Time: 188.00 E/A: 0.80 E'Lateral: 7.18 E'Medial: 10.70 E/E' Med: 7.20 E/E' Lat: 10.70 PHT: 55.00 MVA PHT: 4.00 Decel Kimble: 4.07 Aortic Valve AoV Pk Long: 1.16 AoV Pk Grad: 5.00 WEST: 2.90 LVOT LVOT Pk Long: 1.05 LVOT Mn Long: 0.75 LVOT VTI: 0.21 LVOT Pk Grad: 4.00 LVOT Mn Grad: 3.00 LVOT Diam: 2.00 LVOT Area: 3.14 Diastolic Function MV Pk E: 0.77 MV Pk A: 0.93 E/A: 0.80 E'Medial: 10.70 E/E' Med: 7.20 E' Laterial: 7.18 E/E' Lat: 10.70 Right Ventricle TAPSE (mm): 25.60 TVS' Long: 18.60 Tricuspid Valve TR Pk Long: 2.59 TR Pk Grad: 27.00 RA Press: 3.00 RVSP: 30.00 Great Vessels Aorta Ao Root-2D: 1.00 2.0-3.7 cm Sinus of Valsalva: 2.80 2.0-3.5 cm Ao Asc: 3.50 2.1-3.4 cm Pulmonary Valve PV Pk Long: 0.95 Peak PV Grad: 4.00 Updated in Other Vendor System with Status of Final Sherwin Ricardo MD electronically signed on 03/23/2024 12:51:18 PM with status of Final
[2024-03-22 17:48] LABS: B Type Natriuretic Peptide 63 pg/mL (<100)
[2024-03-22 18:49] LABS: Anion Gap 16 (12-20); Blood Urea Nitrogen 11 mg/dL (9-16); Calcium 9.1 mg/dL (8.4-10.2); Carbon Dioxide 25 mmol/L (22-29); Chloride 105 mmol/L (96-108); Estimated Glomerular Filt Rate > 60; Glucose Random 119 mg/dL (60-115); Potassium 3.2 mmol/L (3.3-5.1); Sodium 143 mmol/L (135-145)
== END ==
LOC: HO.CARD 14:57
PROVIDERS: PCP Registered Nurse; Visit Provider Internal Medicine
DX: I48.0 Paroxysmal atrial fibrillation (principal); R06.02 Shortness of breath
CPT/HCPCS: 36415; 80048; 83880; 93306; Q9957

== ENCOUNTER → 2024-03-22 15:08 | Outpatient (BNV) | payer MEDICARE, SELFPAY | PROVIDERS: PCP Registered Nurse; Visit Provider Internal Medicine Cardiovascular Disease | DX: R06.02 Shortness of breath (principal) | CPT/HCPCS: 93306 ==

== ENCOUNTER 2024-04-10 14:37 | Outpatient (AMB) | payer MEDICARE, SELFPAY ==
--- NOTE | 2024-04-10 14:54 | A.OFFVIS_ITS ---
Vital Signs 04/10/24 14:57 Height 5 ft 2 in Weight 180 lb BMI 32.9 BMI Reason not done Patient refused/unable BP 128/72 Blood Pressure Location Lt brachial Position Sitting Pulse 69 Pulse Source Pulse Oximeter Intake Visit Reasons: 6 wk fu after echo Allergies nickel [NICKEL] Allergy (Intermediate, Unverified 01/11/24 09:10) SWELLING, ITCHY ON CONTACT kendell Allergy (Unknown, Uncoded 01/11/24 09:10) rash, inflamation Medication List - Last Reconciled 04/10/24 by Jr Spence MD apixaban (Eliquis) 5 mg PO BID B-complex with vitamin C 1 tab PO DAILY carbidopa-levodopa 25-100 mg 1 tab PO .5 times a day cetirizine (Zyrtec) 10 mg PO DAILY PRN cholecalciferol (vitamin D3) 125 mcg PO DAILY coenzyme Q10 (Ultra CoQ10) 75 mg PO DAILY docusate sodium (Dulcolax Stool Softener (docusate)) 100 mg PO DAILY furosemide (Lasix) 40 mg PO DAILY ipratropium-albuterol 0.5 mg-3 mg(2.5 mg base)/3 mL 3 mL inhalation Q4-6H PRN magnesium glycinate mg PO metoprolol tartrate 25 mg PO BID polyethylene glycol 3350 (Miralax) 17 grams PO DAILY potassium chloride ER 20 mEq PO DAILY simvastatin 10 mg PO DAILY vit C,E,Zn,Rn-kgizk6-wxc-zeax 250-2.5-0.5 mg caps PO HPI Comments Details: Barbara returns for follow-up. Recently seen in consultation regarding question of cardiac etiology for her wheezing. [facility] documentation reviewed. It seems that in 2020, she had atrial fibrillation. Then went for a BULMARO but during the procedure, she spontaneously converted from atrial fibrillation to sinus rhythm. Hence did not have to have cardioversion. After that, she has been kept on beta-blockers and Eliquis. Few months back, it seems that she had COVID x2. After that, she has been having sensations of wheezing. Frequent coughing. Some shortness of breath. Additionally, sensations of swelling in her legs as well as abdomen. Apart from atrial fibrillation, no other cardiac history. She comes in a wheelchair. Minimal ambulation. Listed to have Parkinson's as well. After she started Lasix, she is feeling much better. She had an echocardiogram, chest x-ray as well as cardiac BNP tested. [facility] Medical History REM behavioral disorder Hallucinations Cognitive change Falls Hyperlipidemia HTN (hypertension) Heart disease Atrial fibrillation Parkinsonism Surgical History History of cataract surgery History of hip replacement Hx of cholecystectomy Family History Mother No problems noted. Social History Caregiver staying overnight: Yes Housing: House Alcohol intake: former Patient Tobacco Use Status: Never used Tobacco Review of Systems Const Denies weakness ENT Denies dizziness Card Denies chest pain, Denies chest pain with activity, Denies syncope, Denies rapid heart rate, Denies pedal edema, Denies edema, Denies leg edema, Denies lightheadedness, Denies palpitations, Denies dyspnea, Denies dyspnea on exertion and Denies orthopnea Resp Denies cough, Denies dyspnea and Denies dyspnea on exertion GI Denies hematochezia and Denies change in stool character Musc Denies abnormal gait, Denies muscle cramps, Denies muscle weakness, Denies numbness, Denies radiating pain into limb and Denies tingling Neuro Denies abnormal gait, Denies dizziness, Denies syncope, Denies numbness, Denies tingling and Denies weakness Endo Denies palpitations Physical Exam Vital Signs: Last Vital Signs Pulse 69 04/10/24 14:57 BP 128/72 04/10/24 14:57 BMI result Body Mass Index 32.9 Const General: comfortable and no acute distress Orientation/consciousness: patient oriented x3 HEENT Other: Unremarkable Head: Yes normal to inspection Neck Neck: Yes normal visual inspection Chest Chest palpation & inspection: normal inspection of the chest Resp Auscultation: clear to auscultation bilaterally Cardio Palpation: normal PMI Heart sounds: S1 normal heart sound present, S2 normal heart sound present, no gallops, no murmurs and no rubs GI Palpation (GI): Soft to palpation Back/Spine/Pelvis Other: unremarkable Skin General skin exam: no rashes or lesions noted Neuro General: patient oriented x3 Extrem Other: 1+ edema General: Yes normal to inspection Psych Mental Status: mental status grossly normal Assessment & Plan Assessment & Plan (1) Shortness of breath: Code(s): R06.02 - Shortness of breath Category: Medical Plan: Studies reviewed. Echocardiogram with LVEF of 55-60%. No overt valvular findings. No evidence of pulmonary hypertension or pericardial effusion. IVC also had normal size/collapsibility. Chest x-ray with no pulmonary vascular congestion. Overall unremarkable. Cardiac BNP was 63. Overall, suspect symptoms are less likely to be cardiac in nature. Much more related to COVID then anything else. She states that she does feel better from the edema standpoint after starting diuretics. Hence may continue for the time being but may not need that long- term. Follow electrolytes. (2) Paroxysmal atrial fibrillation: Code(s): I48.0 - Paroxysmal atrial fibrillation Category: Medical Plan: Continue beta-blockers and Eliquis. Plan Discussed with family who came for appointment. Total time spent including review of data, counseling, documentation, coordination of care-31 minutes. Orders: Orders Basic Metabolic Panel 4 Weeks E87.6 - Hypokalemia Coding Level of Care Code Est Pt Level 4 (92412) Diagnoses Shortness of breath R06.02 Paroxysmal atrial fibrillation I48.0
[2024-04-10 14:57] VITALS: BP 128/72; PULSE 69; BMI 32.9
== END 2024-04-10 15:16 | disposition home or self-care (01) ==
PROVIDERS: PCP Registered Nurse; Visit Provider Internal Medicine
DX: R06.02 Shortness of breath (principal); I48.0 Paroxysmal atrial fibrillation
CPT/HCPCS: 99214

== ENCOUNTER → 2024-04-10 14:37 | Outpatient (BNVA) | payer MEDICARE, SELFPAY | PROVIDERS: PCP Registered Nurse; Visit Provider Internal Medicine | DX: R06.02 Shortness of breath (principal); I48.0 Paroxysmal atrial fibrillation | CPT/HCPCS: 99212 ==

== ENCOUNTER 2024-07-13 12:36 | Outpatient (AMB) | payer MEDICARE, SELFPAY ==
--- NOTE | 2024-07-13 12:38 | MHC.OFFVIS ---
Vital Signs 07/13/24 12:39 Height 5 ft 2 in Weight 180 lb BMI 32.9 BP 122/68 Blood Pressure Location Rt brachial Position Sitting Respiration 16 Pulse 67 Pulse Source Pulse Oximeter Pulse Oximetry (%) 96 Oxygen Delivery Method Room Air Intake Visit Reasons: follow up Parkinsons Intake Note: Pt presents to the office for a 6 month follow up for cognitive changes. Pt reports a fall recently with no injuries due to unsteady gait. She also reports sleep disturbances. 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: No Allergies nickel [NICKEL] Allergy (Intermediate, Verified 07/13/24 12:38) SWELLING, ITCHY ON CONTACT kendell Allergy (Unknown, Uncoded 07/13/24 12:38) rash, inflamation Medication List - Last Reconciled 07/13/24 by Samina Hurtado MD apixaban (Eliquis) 5 mg PO BID arformoterol 2 mL inhalation DAILY B-complex with vitamin C 1 tab PO DAILY carbidopa-levodopa 25-100 mg 1 tab PO .5 times a day cetirizine (Zyrtec) 10 mg PO DAILY PRN cholecalciferol (vitamin D3) 125 mcg PO DAILY coenzyme Q10 (Ultra CoQ10) 75 mg PO DAILY docusate sodium (Dulcolax Stool Softener (docusate)) 100 mg PO DAILY fluticasone propionate 50 mcg/actuation (Flonase Allergy Relief) 1 spray intranasal BID furosemide (Lasix) 40 mg PO DAILY ipratropium bromide 2 sprays intranasal TID-QID PRN ipratropium-albuterol 0.5 mg-3 mg(2.5 mg base)/3 mL 3 mL inhalation Q4-6H PRN magnesium glycinate mg PO metoprolol tartrate 25 mg PO BID polyethylene glycol 3350 (Miralax) 17 grams PO DAILY potassium chloride ER 20 mEq PO DAILY simvastatin 10 mg PO DAILY vit C,E,Zn,Bk-ownot1-brp-zeax 250-2.5-0.5 mg caps PO HPI Comments Details: 74y/o right handed female comes for follow up of Parkinsonism. she is accompanied by her daughters. Her memory is worse, more hallucinations,delusions, sundowning and her slowness has worsened. she still has vivid dreams and acts out.she lives with her daughters. Previous History-Her daughter noticed slowness about 2 years ago and suspected parkinsons. she was seen by a neurologist and diagnosed with parkinsons. she was started on carbidopa/levodopa and was helping . But in the past 3-4 months looks like she is progressing . she was also diagnosed with cognitive difficulty. she denies any tremors she has short term memory issues for over 6 years and has progressed.She has word finding difficulties. She also has rare hallucinations - 2-3 years- more in the evenings, usually when she has intercurrnet infection SLeep- she has sleep talking and screams and yells. she feels like she did not have a sense of smell for many years. Mild depression or anxiety speech- softer. she did LOUD program She has drooling at night. she had swallowing eval and was told normal. But she has trouble chewing and swallowing. Handwriting is poor. she needs help with dressing and showering.she started having falls atleast 2 years ago. she had hip fracture over 1 year ago.she uses a walker now. Her gait was slow prior to that. [facility] Medical History REM behavioral disorder Hallucinations Cognitive change Falls Hyperlipidemia HTN (hypertension) Heart disease Atrial fibrillation Parkinsonism Surgical History History of cataract surgery History of hip replacement Hx of cholecystectomy Family History Mother No problems noted. 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 Code(s): G20.C - Parkinsonism, unspecified Category: Medical Qualifiers: Parkinsonism type: unspecified Qualified Code(s): G20.C - Parkinsonism, unspecified (2) Cognitive change: Code(s): R41.89 - Other symptoms and signs involving cognitive functions and awareness Category: Medical (3) Hallucinations: Code(s): R44.3 - Hallucinations, unspecified Category: Medical (4) REM behavioral disorder: Code(s): G47.52 - REM sleep behavior disorder Category: Medical Plan Continue sinemet 25/100 5 times a day I will trial her on quetiapine 25 mg 1/2 tab at 5pm and 1/2 at 9pm Medications: New quetiapine 1/2 tab at 5pm and 1/2 tab at 9pm 25 mg PO BEDTIME 30 tabs 6RF Coding Level of Care Code Est Pt Level 4 (18281) Complex EM visit Add On G2211 Diagnoses Parkinsonism, unspecified Parkinsonism type G20.C Parkinsonism type: unspecified Cognitive change R41.89 Hallucinations R44.3 REM behavioral disorder G47.52
[2024-07-13 12:39] VITALS: BP 122/68; PULSE 67; RESP 16; O2SAT 96; BMI 32.9
== END 2024-07-13 13:19 | disposition home or self-care (01) ==
PROVIDERS: PCP Registered Nurse; Visit Provider Psychiatry & Neurology Neurology
DX: G20.C Parkinsonism, unspecified (principal); R41.89 Other symptoms and signs involving cognitive functions and awareness; R44.3 Hallucinations, unspecified; G47.52 REM sleep behavior disorder
CPT/HCPCS: 99214; G2211

== ENCOUNTER → 2024-07-13 12:36 | Outpatient (BNVA) | payer MEDICARE, SELFPAY | PROVIDERS: PCP Registered Nurse; Visit Provider Psychiatry & Neurology Neurology | DX: G20.C Parkinsonism, unspecified (principal); R41.89 Other symptoms and signs involving cognitive functions and awareness; R44.3 Hallucinations, unspecified; G47.52 REM sleep behavior disorder | CPT/HCPCS: 99212 ==

== ENCOUNTER 2025-03-12 13:58 | Outpatient (AMB) | payer MEDICARE, SELFPAY ==
--- NOTE | 2025-03-12 13:59 | MHC.OFFVIS ---
Intake Visit Reasons: follow up Intake Note: Patient following up on med trial quetiapine Allergies nickel [NICKEL] Allergy (Intermediate, Verified 03/12/25 14:00) SWELLING, ITCHY ON CONTACT kendell Allergy (Unknown, Uncoded 03/12/25 14:00) rash, inflamation Medication List - Last Reconciled 03/12/25 by Samina Hurtado MD apixaban (Eliquis) 5 mg PO BID arformoterol 2 mL inhalation DAILY B-complex with vitamin C 1 tab PO DAILY budesonide mg inhalation DAILY carbidopa-levodopa 25-100 mg 1 tab PO .5 times a day cetirizine (Zyrtec) 10 mg PO DAILY PRN cholecalciferol (vitamin D3) 125 mcg PO DAILY coenzyme Q10 (Ultra CoQ10) 75 mg PO DAILY docusate sodium (Dulcolax Stool Softener (docusate)) 100 mg PO DAILY formoterol fumarate 2 mL inhalation BID ipratropium bromide 2 sprays intranasal TID-QID PRN ipratropium-albuterol 0.5 mg-3 mg(2.5 mg base)/3 mL 3 mL inhalation Q4-6H PRN magnesium glycinate mg PO metoprolol tartrate 25 mg PO BID polyethylene glycol 3350 (Miralax) 17 grams PO DAILY potassium chloride ER 20 mEq PO DAILY simvastatin 10 mg PO DAILY torsemide 100 mg PO DAILY vit C,E,Zn,Wq-qqhid1-dhj-zeax 250-2.5-0.5 mg caps PO HPI Comments Details: 74y/o right handed female calls for follow up of Parkinsonism. she is accompanied by her daughter in law who helps with history today . . Her memory is worse, more hallucinations,delusions, sundowning and her slowness has worsened. she did not do well with quetiapine - she did not wake up for 12 hrs .Sleep is irregular she still has vivid dreams and acts out.she lives with her daughters. Her constipation worsened , she was in ER last week - she is on miralax - colace -dulcolax . Previous History-Her daughter noticed slowness about 2 years ago and suspected parkinsons. she was seen by a neurologist and diagnosed with parkinsons. she was started on carbidopa/levodopa and was helping . But in the past 3-4 months looks like she is progressing . she was also diagnosed with cognitive difficulty. she denies any tremors she has short term memory issues for over 6 years and has progressed.She has word finding difficulties. She also has rare hallucinations - 2-3 years- more in the evenings, usually when she has intercurrnet infection SLeep- she has sleep talking and screams and yells. she feels like she did not have a sense of smell for many years. Mild depression or anxiety speech- softer. she did LOUD program She has drooling at night. she had swallowing eval and was told normal. But she has trouble chewing and swallowing. Handwriting is poor. she needs help with dressing and showering.she started having falls atleast 2 years ago. she had hip fracture over 1 year ago.she uses a walker now. Her gait was slow prior to that. [facility] Medical History REM behavioral disorder Hallucinations Cognitive change Falls Hyperlipidemia HTN (hypertension) Heart disease Atrial fibrillation Parkinsonism Surgical History History of cataract surgery History of hip replacement Hx of cholecystectomy Family History Mother No problems noted. Social History Caregiver staying overnight: Yes Housing: House Alcohol intake: former Patient Tobacco Use Status: Never used Tobacco Physical Exam Const General: cooperative, comfortable and no acute distress Telehealth Telehealth Telehealth Platform: Telephone Location of provider rendering services: practice address Location of patient: address on file Patient Identification confirmed using: Name, : Yes Telehealth method: voice only Patient verbally consented to treatment: Yes Patient verbally consented to billing insurance company: Yes Patient informed of any privacy concerns related to visit: Yes Assessment & Plan Assessment & Plan (1) 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 Code(s): G20.C - Parkinsonism, unspecified Category: Medical Qualifiers: Parkinsonism type: unspecified Qualified Code(s): G20.C - Parkinsonism, unspecified (2) Cognitive change: Code(s): R41.89 - Other symptoms and signs involving cognitive functions and awareness Category: Medical (3) Hallucinations: Code(s): R44.3 - Hallucinations, unspecified Category: Medical (4) REM behavioral disorder: Code(s): G47.52 - REM sleep behavior disorder Category: Medical Plan Continue sinemet 25/100 5 times a day i will trial her on clonazepam 0.5 mg 1/2 tab to 1 tab qhs Medications: New clonazepam 1/2 to 1 tab orally bedtime; administer 30 minutes before bedtime 30 tabs 2RF Coding Level of Care Code Tele Est Pt Level 4 (04930) Diagnoses Parkinsonism, unspecified Parkinsonism type G20.C Parkinsonism type: unspecified Cognitive change R41.89 Hallucinations R44.3 REM behavioral disorder G47.52
--- OUTSIDE RECORDS SUMMARY | 2025-03-12 14:16 | XMS_ITS | Patient Health Record ---
Author Organization [facility] Address [address] [place] [address] Care Team Providers Care Pig Farm Manager Name Role Phone Kathleen Hanley Unavailable [phone] Allergies No Known Allergies Reason For Referral No Information Medications Medication SIG (Take, Route, Fr equency, Duration) Notes Start Date End Date Status cephalexin 500 mg 1 tab(s) orally 4 ti mes a day for 10 day(s) 12/25/2021 Active simvastatin Active metoprolol Active Plan Of Treatment No Information Insurance Providers Payer Name Payer Address Payer Phone Subscriber Number Group Number Insured Name Patient Relationship to Insured Coverage Start Date Coverage End Date BCBS/PP [address] [place] [address] [phone] [id number] Barbara Bagley Self - patient is the insured Medical (General) History Medical History History ICD Code Cataracts afib High Cholesterol Surgical History Surgery Date(Month/Year) Cholecystectomy Hospitalization History Reason Date(Month/Year) Afib
--- OUTSIDE RECORDS SUMMARY | 2025-03-12 14:16 | XMS_ITS | Data Portability ---
Author Organization [place] [facility], [facility] - [facility] Address [address] [place] [address] Care Team Providers Care Air Brake Rigger Name Role Phone ELIDA SOSA Primary Care Provider Assessment Encounter Date Assessment Date Assessment LastModified by Organization Details LastModified Time 05/11/2022 05/11/2022 1. Left hip CRPP DOS 04/20/22 [email or web address] Not available 05/11/2022 14:03:16 06/01/2022 06/01/2022 1. Left hip CRPP DOS 04/20/22 [email or web address] Not available 06/01/2022 13:58:29 07/10/2022 07/10/2022 1. Left hip CRPP DOS 04/20/22 [email or web address] Not available 07/10/2022 10:19:08 10/09/2022 10/09/2022 1. Left hip CRPP DOS 04/20/22 Not available 10/09/2022 11:12:23 Plan of Treatment Reminders Order Date Submit Date Provider Last Modified By Organization Details Last Modified Time Details Appointments None recorded. Lab None recorded. Referral physical therapist referral - active/pass valery ROM, gait training, strengtheni ng, no restriction s 2021 022 [email or web address] Not available 08:17:53 Procedures None recorded. Surgeries None recorded. Imaging XR, hip + pelvis, unilateral, 2 or 3 view 2021 022 [email or web address] [facility], [address] [facility] [address], [place], [address], 2 08:15:36 XR, hip + pelvis, unilateral, 2 or 3 view 2021 022 [email or web address] [facility], [address] [facility] [address], [place], [address], 2 08:24:37 XR, hip + pelvis, unilateral, 2 or 3 view 2021 022 [email or web address] [facility], [address] [place] [address], [address], 2 17:48:35 XR, hip + pelvis, unilateral, 2 or 3 view 2021 022 [email or web address] Not available 2 15:10:17 Medication Orders None recorded. Patient TargetsNo targets recorded. Patient Instructions Encounter Date Encounter Id Patient Instructions Last Modified By Organization Details Last Modified Time 05/11/2022 [id number] Risks, benefits, alternatives, and complications of intervention as well as the pathology of their issues were discussed. She is healing her left hip appropriately. Radiographs of the left hip show maintained acceptable alignment of her left femoral neck fracture with no evidence of hardware failure. She may continue weightbearing as tolerated to the left lower extremity. The stephania were also removed today using aseptic technique. I will see her back in 3 weeks for clinical examination and x-rays. If there is any other problems or concerns, they are to feel free to call the office. E & M of a new patient. Medical decision making >30 minutes were spent reviewing records, performing a medically appropriate history and/or physical, reviewing radiographs, discussing treatment recommendations and documenting in the record. Not available 05/11/2022 16:32:48 06/01/2022 [id number] She continues to heal from this appropriately. I recommend that she continue with active and passive range of motion as well as gait training and strengthening with no restrictions. I will see her back in 6 weeks for clinical examination and x-rays. If there is any other problems or concerns, they are to feel free to call the office. E & M of an established patient. Medical decision making >20 minutes were spent reviewing records, performing a medically appropriate history and/or physical, reviewing radiographs, discussing treatment recommendations and documenting in the record. [email or web address] Not available 06/01/2022 18:59:53 07/10/2022 [id number] She continues to heal her left hip appropriately. I recommend she continue weightbearing as tolerated to her left lower extremity. I will see her back in 3 months for clinical examination and x-rays. If there is any other problems or concerns, they are to feel free to call the office. E & M of an established patient. Medical decision making >20 minutes were spent reviewing records, performing a medically appropriate history and/or physical, reviewing radiographs, discussing treatment recommendations and documenting in the record. [email or web address] Not available 07/10/2022 11:14:04 10/09/2022 [id number] She continues to heal from this appropriately. I recommend that she continue with weightbearing as tolerated and I will see her back at this point as needed. If there is any other problems or concerns, they are to feel free to call the office. E & M of an established patient. Medical decision making >20 minutes were spent reviewing records, performing a medically appropriate history and/or physical, reviewing radiographs, discussing treatment recommendations and documenting in the record. [email or web address] Not available 10/10/2022 14:20:07 Reason for Referral Physical Therapist Referral for Closed fracture of neck of femur active/passive ROM, gait training, strengthening, no restrictions Referring Physician: Tavares Hooks, Orthopaedic Surgery - [facility], Encounter Date: 06/01/2022 Results Created Date Observation Date Name Description Value Unit Range Abnormal Flag Note LastModifiedBy Organization Detail LastModifiedTime 06/01/20 22 XR, hip + pelvi s, unila teral , 2 or 3 view No observ ation record ed. [facility] [address] [place] [address], [id number], 06/01/2022 18:59:36 07/10/20 22 XR, hip + pelvi s, unila teral , 2 or 3 view No observ ation record ed. [email or web address] [facility] [address] [place] [address], [place], [address], 07/10/2022 12:09:28 10/09/20 22 XR, hip + pelvi s, unila teral , 2 or 3 view No observ ation record ed. [email or web address] [address], [place], [address], 10/10/2022 14:19:58 Result Notes None recorded. Problems Name Problem SNOMED Code Status Onset Date Resolution Date Notes Provider Name and Address Organization Details Recorded Time Closed fracture of neck of femur 752872365 Active 022 Wandy Jacob [place], [place] - [facility] 15:04:54 Problem Notes None recorded. Procedures Surgical History None recorded. Imaging Results Imaging Date Name Status LastModified by Organiz ation Details LastModified Time 06/01/2022 XR, hip + pelvis, unilateral , 2 or 3 view completed [email or web address] [facility] [address] [place] [address], [id number], 06/01/2022 18:59:36 07/10/2022 XR, hip + pelvis, unilateral , 2 or 3 view completed [email or web address] [address], [place], [address], 07/10/2022 12:09:28 10/09/2022 XR, hip + pelvis, unilateral , 2 or 3 view completed [address], [place], [address], 10/10/2022 14:19:58 Procedure Notes None recorded. Medical Equipment None Reported. Allergies No known drug allergies Medications Name Sig Start Date Stop Date Status Note LastModified by Organization Details LastModified Time simvastatin 10 mg tablet TAKE 1 TABLET BY MOUTH EVERY DAY active Not Available Not Available No t Available sulfamethoxazole 800 mg-trimethoprim 160 mg tablet TAKE 1 TABLET BY MOUTH EVERY 12 HOURS FOR 5 DAYS active Not Available Not Available No t Available carbidopa 25 mg-levodopa 100 mg tablet TAKE 1 TABLET 3 TIMES A DAY BY ORAL ROUTE. active Not Available Not Available No t Available metoprolol tartrate 25 mg tablet TAKE 1 TABLET BY MOUTH TWICE A DAY active Not Available Not Available No t Available Eliquis 5 mg tablet TAKE 1 TABLET BY MOUTH TWICE A DAY active Not Available Not Available No t Available Vitals Date Recorded Body weight Body mass index (BMI) Body height Provider Name and Address Organization Details Last Updated DateTime 05/11/2022 11147.82 g 28.3 kg/m2 157.48 cm Jon Saleem [place] [facility] 05/11/2022 13:58:24 Date Recorded Body height Body mass index (BMI) Body weight Provider Name and Address Organization Details Last Updated DateTime 06/01/2022 157.48 cm 28.3 kg/m2 50314.82 g Catherine Almeidagarrett [facility] 06/01/2022 14:01:33 Date Recorded Body height Body mass index (BMI) Body weight Provider Name and Address Organization Details Last Updated DateTime 10/09/2022 157.48 cm 28.3 kg/m2 17479.82 g Gina Sriram [facility] 10/09/2022 11:07:43 Social History None recorded. Functional Status None recorded. Mental Status None recorded. Family History Nothing Reported. Medical History No medical history recorded. Gynecological HistoryNo gynecological history recorded. Obstetrics History GPAL:G 0 P 0 0 0 0 Past Encounters Encounter ID Performer Location Encounter Start Date Encounter Closed Date Diagnosis/Indication Diagnosis SNOMED-CT Code Diagnosis ICD10 Code Diagnosis Note [id number] Eugenie Hooks [address] [address] 05/11/2022 13:50:35 05/11/2022 15:10:17 Pain of left hip joint 8562715574 44650 M25.552 Closed fra cture of neck of femur 875277102 S72.025A [id number] MimiKarissa Hooks [address] [address] 06/01/2022 13:56:32 06/01/2022 14:35:57 Closed fracture of neck of femur 034740864 S72.025A [id number] Dzi-Osmel Coulteruyen, DO [facility] [address] [place] [address] 07/10/2022 09:32:39 07/10/2022 11:02:09 Closed fracture of neck of femur 789633055 S72.025A [id number] Dzi-Osmel Hooks, DO [facility] [address] [place] [address] 10/09/2022 10:56:57 10/09/2022 11:44:56 Closed fracture of neck of femur 695059877 S72.045D [id number] Mimii-Osmel Macen, DO [facility] [address] [place] [address] 05/11/2022 00:00:00 05/11/2022 20:26:39 [id number] Mimii-Osmel Hooks, DO [facility] [address] [place] [address] 06/01/2022 00:00:00 06/01/2022 19:00:00 [id number] Dzi-Osmel Hooks, DO [facility] [address] [place] [address] 07/10/2022 00:00:00 07/10/2022 12:09:58 [id number] Mimii-Osmel Macen, DO [facility] [address] [place] [address] 10/09/2022 00:00:00 10/10/2022 14:20:14 Health Concerns Section Related Observation LastModified by Organization Detai ls LastModified Time None Recorded Concern Status LastModified by Organization Details LastModified Time None Recorded Advance Directives Directive None Recorded Payers Insurance Date Sequence Insurance Name Policy Number Policy Maloney Covered Member ID Maloney Member ID Guarantor Name 10/12/2022 1 [employer] (MEDICARE REPLACEMENT PPO) [id number] Barbara Bagley [id number] Barbara Bagley 04/21/2022 1 *SELF PAY* Ma shamika Bagley Notes Date Note Type Note Provider Name and Address Organization Details Recorded Time 05/11/2022 text/html Generic HPI TemplateReported bypatient.Notes: 2: states she is doing well since Sx. she has minor discomfort only upon certain movements that is controlled with tylenol. denies any numbness and tingling. denies swelling. she remains WB at 50% in LLE and presents in chair. Ms. Bagley is a 71yo female who was seen and treated POP after a trip and fall and presents status post:1. Left hip CRPPDOS 04/20/22She reports her pain is minimal and well controlled. She is optimizing left hip range of motion with home exercises and reports she has been progressing weightbearing status through the left lower extremity. She does report some lingering weakness and is optimizing ambulation with a walker however presents today in wheelchair for mobility. She does report a post operative fall her second day in rehab. She does report some lingering weakness specifically with extended overuse or ambulation but otherwise has no other complaints at this [place] [address] [facility], [place], [address], [facility] - [facility] 05/11/2022 20:26:39 06/01/2022 text/html Generic HPI TemplateReported bypatient.Location:lef t hip/pelvis Quality:aching Severity:mild pain Duration:occasional Onset/Timing:DOS 04/20/22 Context:s/p hip CRPP Aggravating factors:exercise Alleviating factors:TylenolNotes:- Ms. Bagley is present in a wheelchair today. She is WBAT with the assistance of a walker. She states her pain is mild and takes Tylenol PRN for pain control. She is doing home health therapy a total of 6 visits completed. Ms. Bagley is a 72yo female who was seen and treated POP after a trip and fall and presents status post:1. Left hip CRPPDOS 04/20/22She reports her pain is mild and well controlled. She is optimizing left hip range of motion and ambulation with a walker and weightbearing as tolerated to the LLE. She presents today in a wheelchair for mobility and does report some lingering weakness, specifically with extended overuse/ambulation. She has no other complaints today. Tavares Hooks, [address] [facility] [address], [place], [address], [facility] - [facility] 06/01/2022 19:00:00 07/10/2022 text/html Generic HPI TemplateReported bypatient.Location:lef t hip/pelvis Quality:aching Severity:mild pain Duration:occasional Onset/Timing:DOS 04/20/22 Context:s/p hip CRPP Aggravating factors:exercise Alleviating factors:TylenolNotes:: s/p lt hip CRPP DOS 04/20/22- patient states feels good still doing therapy Ms. Bagley is a 72yo female who was seen and treated POP after a trip and fall and presents status post:1. Left hip CRPPDOS 04/20/22She reports her pain is controlled. She is optimizing ambulation with a walker and reports the weakness is improving. She is also optimizing left hip range of motion with home exercises and denies stiffness. She reports with her Parkinsons she was walking with a walker prior to the fall. She does report some occasional weakness, specifically with extended ambulation but otherwise reports she is returning to her normal ADLs with no complications and has no complaints at this time. Tavares Hooks, [address] [facility] [facility] [address], [place], [address], [facility] - [facility] 07/10/2022 12:09:58 10/09/2022 text/html Generic HPI TemplateReported bypatient.Location:lef t hip/pelvis Quality:aching Severity:mild pain Duration:occasional Onset/Timing:DOS 04/20/22 Context:s/p hip CRPP Aggravating factors:exercise Alleviating factors:TylenolNotes:1 12/10/21: s/p lt hip CRPP DOS 04/20/22- patient states she is feeling great no issues. ambulates with a walker., Ms. Bagley is a 72yo female who was seen and treated POP after a trip and fall and presents status post:1. Left hip CRPPDOS 04/20/22Shdevora reports her pain is minimal and well controlled. She is optimizing left hip range of motion with home exercises and strengthening. She is optimizing ambulation with a walker and does report some occasional weakness, specifically with extended overuse. Otherwise she reports she has returned to her normal ADLs with no complications and has no other complaints at this [place] [address], [place], [address], [facility] - [facility] 10/10/2022 14:20:14 OBGyn Episode No OBEpisode recorded.
--- OUTSIDE RECORDS SUMMARY | 2025-03-12 14:16 | XMS_ITS | Data Portability ---
Author Organization [place] - PAYTON GRIGGS MD , Main Office Address [address] [facility] [address] [place] [address] Care Team Providers Care Wood Crafter Name Role Phone AMOL RIVAS Primary Care Provider Assessment No assessment recorded. Plan of Treatment Reminders Order Date Submit Date Provider Last Modified By Organization Details Last Modified Time Details Appointments None recorded . Lab None recorded . Referral None recorded . Procedures None recorded . Surgeries None recorded . Imaging None recorded . Medication Orders Exelon Patch 4.6 mg/24 hour transder mal 2022 023 [email or web address] [id number], [address] [place], [address], 3 16:20:41 Klonopin 0.5 mg tablet 2022 023 [email or web address] [id number], [address] [place], [address], 3 16:19:40 Sinemet 25 mg-100 mg tablet 2021 022 [email or web address] [id number], [address] [place], [address], 3 10:21:42 Patient TargetsNo targets recorded. Patient Instructions Encounter Date Encounter Id Patient Instructions Last Modified By Organization Details Last Modified Time 03/11/2022 [id number] LSVT big and cristian d therapy* [email or web address] Not available 03/18/2022 08:14:08 06/10/2022 [id number] Lengthy discussi on of PARS Not available 06/10/2022 16:57:06 03/10/2023 [id number] Moving to [place] Not available 03/10/2023 16:20:58 Reason for Referral None Reported. Results Created Date Observation Date Name Description Value Unit Range Abnormal Flag Note LastModifiedBy Organization Detail LastModifiedTime 02/28/20 22 02/27/2022 SPECT , brain No observ ation record ed. [facility] [address], [place], [address], 03/05/2022 13:59:50 11/17/19 23 11/16/2022 evalu ation of oral and phary ngeal swall owing funct ion (PROC ) No observ ation record ed. [email or web address] [facility] [address] [place], [address], 12/10/2022 11:40:10 Result Notes None recorded. Problems Name Problem SNOMED Code Status Onset Date Resolution Date Notes Provider Name and Address Organization Details Recorded Time Mild neurocognitive disorder 719643807 Active 2021 Debra liu ND Keenan GRIGGS MD 2 13:41:25 Parkinson's disease 29123976 Active 2021 Debra liu ND Keenan GRIGGS MD 2 10:58:44 Problem Notes None recorded. Procedures Surgical History Date Name Laterality Status Provider Name and Address Organization Details Recorded Time Cholecystectomy completed Ivania Woods ND Keenan GRIGGS MD 01/21/2022 12:57:23 Imaging Results Imaging Date Name Status LastModified by Organiz ation Details LastModified Time 02/27/2022 SPECT, brain completed [facility] [address], [place], [address], 03/05/2022 13:59:50 11/16/2022 evaluation of oral and pharyngeal swallowing function (PROC) completed [email or web address] [facility] [address] [place], [address], 12/10/2022 11:40:10 Procedure Notes None recorded. Medical Equipment None Reported. Medications Name Sig Start Date Stop Date Status Note LastModified by Organization Details LastModified Time clonazepam 0.5 mg tablet TAKE 1 TABLET BY MOUTH TWICE A DAY active Not Available Not Available No t Available simvastatin 10 mg tablet Take 1 tablet every day by oral route. active Not Available Not Available No t Available carbidopa 25 mg-levodopa 100 mg tablet TAKE 1 TABLET BY MOUTH FOUR TIMES A DAY 2022 active Not Available Not Available Not Avai lable cholecalcif hannah (vitamin D3) 125 mcg (5,000 unit) capsule Take by oral route. active Not Available Not Available No t Available metoprolol tartrate 25 mg tablet Take 1 tablet twice a day by oral route. active Not Available Not Available No t Available Colace active Not Available Not Availa ble Not Available Miralax active Not Available Not Avail able Not Available rivastigmin e 4.6 mg/24 hour transdermal patch APPLY 1 PATCH DAILY TO SKIN 2022 active Not Available Not Available Not Avai lable Eliquis 5 mg tablet Take 1 tablet twice a day by oral route. active Not Available Not Available No t Available albuterol sulf 90 mcg/actuati on breath activated powder inhaler,sen sor Inhale 2 puffs every 4 hours by inhalatio n route. 06/10 completed Not Available Not Available Not Available Vitals Date Recorded Body height Body weight Heart rate Body temperature Oxygen saturation Oxygen saturation in Arterial blood by Pulse oximetry Systolic blood pressure Diastolic blood pressure Provider Name and Address Organization Details Last Updated DateTime 2 157.48 cm 21488 g 72 /min 100.1 [degF] 95 % 95 % 126 mm[Hg] 76 mm[Hg] Ivania GRIGGS MD 2 16:12:07 Date Recorded Body height Body weight Heart rate Body temperature Oxygen saturation Oxygen saturation in Arterial blood by Pulse oximetry Systolic blood pressure Diastolic blood pressure Provider Name and Address Organization Details Last Updated DateTime 2 157.48 cm 08884.5 6 g 67 /min 98.8 [degF] 97 % 97 % 130 mm[Hg] 80 mm[Hg] Debra GRIGGS MD 2 16:35:35 Date Recorded Body height Body weight Heart rate Body temperature Oxygen saturation Oxygen saturation in Arterial blood by Pulse oximetry Systolic blood pressure Diastolic blood pressure Provider Name and Address Organization Details Last Updated DateTime 2 157.48 cm 26540.7 g 66 /min 97.6 [degF] 98 % 98 % 120 mm[Hg] 80 mm[Hg] Ivania GRIGGS MD 2 15:33:25 Date Recorded Body height Body weight Heart rate Body temperature Oxygen saturation Oxygen saturation in Arterial blood by Pulse oximetry Systolic blood pressure Diastolic blood pressure Provider Name and Address Organization Details Last Updated DateTime 3 157.48 cm 77115.4 8 g 64 /min 98 [degF] 98 % 98 % 126 mm[Hg] 78 mm[Hg] Ivania GRIGGS MD 3 15:41:48 Date Recorded Body height Body weight Heart rate Oxygen saturation Oxygen saturation in Arterial blood by Pulse oximetry Systolic blood pressure Diastolic blood pressure Provider Name and Address Organization Details Last Updated DateTime 3 157.48 cm 83356.2 6 g 66 /min 97 % 97 % 122 mm[Hg] 78 mm[Hg] Ivania GRIGGS MD 3 15:57:41 Social History Question Answer Notes LastModified by Organizat ion Details LastModified Time Tobacco Smoking Status Never Smoker ALESIA Hernandez MD 01/21/2022 12:59:54 What Is [facility] Information not available 01/21/2022 Sex: Unknown Functional Status None recorded. Mental Status None recorded. Family History Nothing Reported. Medical History Condition Response Heart Problems Gynecological HistoryNo gynecological history recorded. Obstetrics History GPAL:G 0 P 0 0 0 0 Past Encounters Encounter ID Performer Location Encounter Start Date Encounter Closed Date Diagnosis/Indication Diagnosis SNOMED-CT Code Diagnosis ICD10 Code Diagnosis Note [id number] Payton Griggs MD, PhD Main Office [address] [place] [address] [address] [place] [address] 01/21/2022 12:57:14 01/21/2022 13:55:39 Parkinsonism 11494937 G20 DaTScan Atrial fibrillation 4943 6004 I48.91 Continue Eliquis Mild neuro cognitive disorder 890584115 G31.84 [id number] Payton Griggs MD, PhD Main Office [address] [place] [address] [address] [facility] [place] [address] 03/11/2022 16:07:15 03/12/2022 10:53:10 Parkinson's disease 96609353 G20 Da [id number] Payton Griggs MD, PhD Main Office [address] [place] [address] [address] [facility] [place] [address] 06/10/2022 15:45:17 06/11/2022 08:46:41 Parkinson's disease 52377140 G20 Incease Sinemet to QID, may need DA and COMT at next visit Mild neuro cognitive disorder 674026144 G31.84 [id number] Payton Griggs MD, PhD Main Office [address] [place] [address] [address] [facility] [place] [address] 09/09/2022 15:25:01 09/09/2022 16:39:38 Parkinson's disease 03786628 G20 Mild neuro cognitive disorder 547411544 G31.84 Atrial fibrillation 4943 6004 I48.91 Continue Eliquis [id number] Payton Griggs MD, PhD Main Office [address] [place], [place] [address] [address] [facility] [place] [address] 12/02/2022 14:57:23 12/02/2022 17:00:53 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 [id number] Payton Griggs MD, PhD Main Office [address] [place] [address] [address] [place] [address] 03/10/2023 15:41:03 03/10/2023 16:25:52 Parkinson's disease 13042214 G20 akinetic Mild neuro cognitive disorder 011586622 G31.84 Concern for Lewy Body Dementia Health Concerns Section Related Observation LastModified by Organization Detai ls LastModified Time None Recorded Concern Status LastModified by Organization Details LastModified Time None Recorded Advance Directives Directive None Recorded Payers Encounter Date Sequence Insurance Name Policy Number Policy Maloney Covered Member ID Maloney Member ID Guarantor Name 03/11/2022 1 [employer] (MEDICARE REPLACEMENT PPO) [id number] Barbara Bagley [id number] Barbara Bagley 06/10/2022 1 [employer] (MEDICARE REPLACEMENT PPO) [id number] Barbara Bagley [id number] Barbara Bagley 09/09/2022 1 [employer] (MEDICARE REPLACEMENT PPO) [id number] Barbara Bagley [id number] Barbara Bagley 12/02/2022 1 [employer] (MEDICARE REPLACEMENT PPO) [id number] Barbara Bagley [id number] Barbara Bagley 03/10/2023 1 [employer] (MEDICARE REPLACEMENT PPO) [id number] Barbara Bagley [id number] Barbara Bagley Notes Date Note Type Note Provider Name and Address Organization Details Recorded Time 03/11/2022 text/html 71 yo right hand ed WF returns following a DatScan that was abnormal, demonstrating dopamine deficiency. Patient feels her symptoms began about 5 years ago with a tremor in her left hand. She endorses constipation and micrographia. She walks slowly. She denies falls. Payton Griggs MD, PhD [address] [place] [address],[address], [place], [address], [facility] - PAYTON GRIGGS MD 03/11/2022 16:38:18 06/10/2022 text/html 72 yo right hand ed WF returns for ongoing care of symptoms related to Parkinson's Disease. She is on Sinemet 25/100 TID. She had a trip and fall and broke her left hip on April 20. She had hip surgery at [facility] and then was rehabbed at [facility]. She is now going to [facility] outpt rehab.She endorses constipation, controlled by miralax and Colace. She has been watching PD videos and learning a lots. Payton Griggs MD, PhD [address] [place] [address],[address], [place], [address], [facility] - PAYTON GRIGGS MD 06/10/2022 17:03:10 09/09/2022 text/html 72 yo right hand ed WF returns for ongoing care of symptoms related to Parkinson's Disease and Mild Cognitive impairment. She describes early symptoms of micrographia which has improved with treatment. She describes issues staying asleep at night; however, she frequently has the TV on and it wakens her. She is using a walker which has helped her balance. Miralax controls her constipation. She denies hallucinations. She denies falls. Daughter does mention that patient does have visual hallucinations. Patient also relates double vision, usually at night while watching TV. We discuss the possibility that this may be an off symptom. 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 Patient had 1 fall in the bathroom since her last visit. She bruised her left shoulder. While talking about it, she has had 3 syncopal spells in the bathroom (?vasovagal syncope). She also describes symptoms consistent with REM sleep behavior disorder. She talks in her sleep and can awaken in another room. Her skin is now dry and flaky.Caregiver does report patient having occasional visual hallucinations. Payton Griggs MD, PhD [address] [place] [address],[facility] [address], [place], [address], [facility] - PAYTON GRIGGS MD 12/03/2022 12:04:25 03/10/2023 text/html 72 yo right hand ed WF returns for ongoing care of symptoms related to Parkinson's Disease. She denies any falls; no issues with constipation on daily Miralax; she is sleeping fairly well. She lives with her daughter and her . She is on her own daily. She does not have a sense of smell. She denies symptoms consistent with off spells. She uses a walker at all times. Payton Griggs MD, PhD [address] [place] [address],[facility] [address], [place], [address], [facility] PAYTON GRIGGS MD 03/10/2023 16:21:54 OBGyn Episode No OBEpisode recorded.
--- OUTSIDE RECORDS SUMMARY | 2025-03-12 14:16 | XMS_ITS | Continuity of Care Document ---
Author Organization [facility] Address [address] [place] [address] Phone Care Team Providers Care [place] Pumper Name Role Phone jO LEOS, Regino Nugent Unavailable Unavailable Allergies, Adverse Reactions, Alerts Substance Reaction Status Criticality nickel inflammation ear lob es or wherever the contact with nickel touches(severe) Active No Information Medications Medication Instructions Dosage Effective Dates (start - stop) Status Comments carbidopa 25 mg-levodopa 100 mg tablet - Active simvastatin 10 mg tablet TAKE 1 TABLET BY MOUTH EVERY DAY - Active Eliquis 5 mg tablet - Active metoprolol tartrate 25 mg tablet TAKE 1 TABLET BY MOUTH TWICE A DAY - Active Stool Softener 100 mg capsule take 1 capsule by oral route 2 times every day at bedtime as needed 100 MG - Active Vitamin D3 50 mcg (2,000 unit) capsule take 1 capsule by oral route once 1 capsule - Active Prolensa 0.07 % eye drops instill 1 drop by ophthalmic route once every day into operated eye, Start 2 days prior to surgery - No Longer Active prednisolone acetate 1 % eye drops,suspension instill 1 drop by ophthalmic route 4 times daily into operated eye(s), Start 2 days Prior to Surgery - No Longer Active ofloxacin 0.3 % eye drops instill 1 drop by ophthalmic route 4 times every day into operated eye(s), Start 2 days Prior to Surgery - No Longer Active Procedures Procedure Date Post-op Follow-up Visit Post-op Follow-up Visit Cataract Cataract OCT post segmt Post-op Follow-up Visit Post-op Follow-up Visit Cataract Cataract IOL Master OCT post segmt Refraction Eye exam new comprehensive Results Test Name Date and Time Measure Units Reference Range Abnormal Flag Status Commen ts Panel Description: [id number] Final Image Zeiss Result 1 Panel Description: [id number] Final Image Zeiss Result 2 Advance Directives Directive Yes / No Effective Date File Name No Information Encounters Encounter Description Practice Location Reason(s) For Visit Diagnoses Date Provider Providers Copied on Encounter [facility], [address] [place], [place], [id number] , tel: [phone] [facility] s/p PKE OU (chief complaint) Presence of pseudophakiaStrabism ic amblyopia, left eye 3 Oj Nugent. [address], [place], [place], [id number] , [place]. tel: [phone] Referring Provider: Yonatan Tavarez, [address], [place], [address] . tel:[phone] [facility], [address] [place], [place], [id number] , [place] tel: [phone] [facility] Post Op (chief complaint) Presence of pseudophakia 3 Carlos Manuel Agarwal. [address], [place], [place], [address] , [place]. tel: [phone] Referring Provider: Yonatan Tavarez, [address], [place], [address] . tel:[phone] [facility], [address] [place], [place], [id number] , [place] tel: [phone] [facility] No Information 3 Shalom Desai. [address] [place], [place], [address] , [place]. tel: [phone] Referring Provider: Yonatan Tavarez, [address], [place], [address] . tel:[phone] [facility], [address] [place], [place], [address] , [place] tel: [phone] [facility] No Information 3 [facility]. [address], [place], [place], [address] , [place]. tel: [phone] Referring Provider: Lloyd Angulo, [address] [place] [address], [address] . tel:[phone] [facility], [address] [place] [address], [id number] , [place] tel: [phone] [facility] s/p PKE OS (chief complaint) blurry vision (chief complaint) glare (chief complaint) Presence of pseudophakiaStrabism ic amblyopia, left eyeVitreomacular adhesion, left eye 3 Oj Nugent. [address], [place], [place], [address] , [place]. tel: [phone] Referring Provider: Yonatan Tavarez, [address], [place], [address] . tel:[phone] [facility], [facility] [place], [place], [address] , [place] tel: [phone] [facility] PO 1 Day (chief complaint) Presence of pseudophakia 3 Carlos Manuel Agarwal. [address], [place], [place], [address] , [place]. tel: [phone] Referring Provider: Yonatan Tavarez, [address], [place], [address] . tel:[phone] [facility], [address] [facility], [place], [place], [address] , [place] tel: [phone] [facility] No Information 3 Shalom Desai. [address] [place], [place], [id number] , [place]. tel: [phone] Referring Provider: Yonatan Tavarez, [address], [place], [address] . tel:[phone] [facility], [address] [place], [id number] , [place] tel: [phone] [facility] No Information 3 [facility]. [address], [place], [place], [address] , [place]. tel: [phone] Referring Provider: Lloyd Angulo, [address] [place] [address], [address] . tel:[phone] [facility], [address] [place], [place], [address] , [place] tel: [phone] [facility] No Information 2 Shalom Desai. [address] [place], [place], [address] , [place]. tel: [phone] [facility], [address] [place], [place], [address] , [place] tel: [phone] [facility] blurry vision (chief complaint) glare (chief complaint) Age-related nuclear cataract, bilateralPosterior subcapsular polar age-related cataract, bilateralNonexudativ e age-related macular degeneration, bilateral, intermediate dry stageDiplopia 2 Shalom Desai. [address] [facility], [place], [place], [address] , [place]. tel:[phone] Referring Provider: Yonatan Tavarez, [address], [place], [address] . tel:[phone] Family History Family Member Type Diagnosis Age At Onset Problem Family history of Diabetes m ellitus Problem Family history of Alzheimer' s/ dementia Problem Family history of Cardiovasc ular disease Problem Family history of Cataracts Immunizations Vaccine Date Status Comments Flu (split) (3 yrs or older) administered Source: Other Provider Payers Payer name Insurance type Covered democrat ID Josef soria(s) [facility] [id number] Social History Type Description Quantity Date Captured Comments Alcohol Use Details No Caffeine Use Details Unknown Tobacco Use Status Current non-smoker Smoking Status Never smoker Sex Female Chief Complaint And Reason For Visit From encounter dated '02/15/2023 15:20'. s/p PKE OU (chief complaint). Description: The 72 year old patient presents for evaluation of s/p PKE in the OU. Pt reports no eye pains/discomfort, pt finished PO drop instructions as directed. Pt would like updated spec Rx today w/ possible prism. Reason For Referral Reason For Referral No Information Plan Of Treatment Date Type Action Status Future Order: Radiology Order Up jean pierre (Z-[id number]), Sent on: Sent History Of Present Illness Encounter Date Complaint History Of Prese nt Illness s/p PKE OU The 72 year old patient presents for evaluation of s/p PKE in the OU. Pt reports no eye pains/discomfort, pt finished PO drop instructions as directed. Pt would like updated spec Rx today w/ possible prism. Post Op Post Op in the O D SENSAR +23.00 Pt states that she had a good night , she states that her vision is good, no pain , Her skin care therapist, Iva, understands her post op gtts, She does have some pricking feelings / s/p PKE OS The 72 year old patient presents for evaluation of s/p PKE OS. Pt notes no improvement in vision since last visit. Pt is complaint w/ PO gtts as directed. PT notes no eye pains/discomfort. Pt wishes to proceed w/ PKE OD as scheduled. glare The patient is p resent for evaluation of glare in the OD. Pt c/o increasing glare x 1 year. PT reports difficulty driving at night due to glare from headlights. blurry vision The patient is p resent for evaluation of blurry vision in the OD. Pt reports gradual decline in vision over the past year. PT c/o increasing difficulty focusing on the TV and reading fine print. PO 1 Day The 72 year old patient presents for S/P CE w/ Sensar OS PO 1 Day. Pt. doing well blurry vision The 72 year old patient presents for Cataract Evaluation referred by Dr. Payton Sargent MD ( Neurologist ). Pt. c/o blurry vision OU causing difficulty viewing tv, and reading fine print ( glasses helps ) gradually worsened x 1 yr.Pt. 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 c/o glare fr om headlights at night OU causing difficulty driving at night x gradual Functional Status Date Functional Assessmen t No Information Instructions Date Instruction Additional Infor jaxson Impression/Plan Related to Prese nce of pseudophakia Impression/Plan Related to Strab ismic amblyopia, left eye RTC for 2-5 week PO Related to P resence of pseudophakia Impression/Plan Related to Prese nce of pseudophakia Impression/Plan Related to Strab ismic amblyopia, left eye Impression/Plan Related to Vitre omacular adhesion, left eye Impression/Plan Related to Prese nce of pseudophakia Impression/Plan Related to Prese nce of pseudophakia Impression/Plan Related to Diplo britni Impression/Plan Related to Nonex udative age-related macular degeneration, bilateral, intermediate dry stage Impression/Plan Related to Poste rior subcapsular polar age-related cataract, bilateral Impression/Plan Related to Age-r elated nuclear cataract, bilateral Assessments Type Assessment Date assessment Presence of pseudophakia 2022 assessment Strabismic amblyopia, left eye A impression Strabismic amblyopia, left eye: H53.032 impression Presence of pseudophakia: Z96.1 Patient Care Teams Name Effective Dates (start - stop) Status Members No Information
--- OUTSIDE RECORDS SUMMARY | 2025-03-12 14:16 | XMS_ITS | Data Portability ---
Author Organization [place] [facility], [facility] Address [address] [facility] [address] [place] [address] Assessment No assessment recorded. Plan of Treatment Reminders Order Date Submit Date Provider Last Modified By Organization Details Last Modified Time Details Appointments None record ed. Lab None record ed. Referral None record ed. Procedures None record ed. Surgeries None record ed. Imaging None record ed. Medication Orders None record ed. Patient TargetsNo targets recorded. Patient InstructionsNo instructions recorded. Reason for Referral None Reported. Results Created Date Observation Date Name Description Value Unit Range Abnormal Flag Note LastModifiedBy Organization Detail LastModifiedTime 06/01/20 22 XR, hip + pelvi s, unila teral , 2 or 3 view No observ ation record ed. [id number] [facility] [address] [place] [address], [address], 07/30/2023 03:54:16 07/10/20 22 XR, hip + pelvi s, unila teral , 2 or 3 view No observ ation record ed. [id number] [facility] [address] [place] [address] [address], [place], [address], 07/30/2023 03:54:16 10/09/20 22 XR, hip + pelvi s, unila teral , 2 or 3 view No observ ation record ed. [id number] [facility] [address], [place], [address], 07/30/2023 03:54:16 Result Notes None recorded. Problems Name Problem SNOMED Code Status Onset Date Resolution Date Notes Provider Name and Address Organization Details Recorded Time Closed fracture of neck of femur 727019264 Active 022 Not Available [facility] 03:55:10 Problem Notes None recorded. Procedures Surgical History None recorded. Imaging Results Imaging Date Name Status LastModified by [facility]iz [facility] Details LastModified Time 06/01/2022 XR, hip + pelvis, unilateral , 2 or 3 view completed [id number] [address], [address], 07/30/2023 03:54:16 07/10/2022 XR, hip + pelvis, unilateral , 2 or 3 view completed [id number] [facility] [address], [place], [address], 07/30/2023 03:54:16 10/09/2022 XR, hip + pelvis, unilateral , 2 or 3 view completed [id number] [facility] [address], [place], [address], 07/30/2023 03:54:16 Procedure Notes None recorded. Medical Equipment None [...] No t Available Vitals Date Recorded Body mass index (BMI) Body height Body weight Provider Name and Address Organization Details Last Updated DateTime 05/11/2022 28.3 kg/m2 157.48 cm 12349.82 g Not Available [facility] 07/30/2023 03:54:36 Date Recorded Body mass index (BMI) Body height Body weight Provider Name and Address Organization Details Last Updated DateTime 06/01/2022 28.3 kg/m2 157.48 cm 64991.82 g Not Available [facility] 07/30/2023 03:54:36 Date Recorded Body mass index (BMI) Body height Body weight Provider Name and Address Organization Details Last Updated DateTime 10/09/2022 28.3 kg/m2 157.48 cm 28205.82 g Not Available [facility] 07/30/2023 03:54:36 Social History None recorded. Functional Status None recorded. Mental Status None recorded. Family History Nothing Reported. Medical History No medical history recorded. Gynecological HistoryNo gynecological history recorded. Obstetrics History GPAL:G 0 P 0 0 0 0 Past Encounters Encounter ID Performer Location Encounter Start Date Encounter Closed Date Diagnosis/Indication Diagnosis SNOMED-CT Code Diagnosis ICD10 Code Diagnosis Note [id number] Tavares Hooks DO [facility] [address] [place] [address] 05/11/2022 13:50:35 05/11/2022 15:10:17 [id number] Tavares Hokos DO [facility] [address] [place] [address] 06/01/2022 13:56:32 06/01/2022 14:35:57 [id number] Tavares Hooks DO [facility] [address] [place] [address] 07/10/2022 09:32:39 07/10/2022 11:02:09 [id number] Tavares Hooks DO [facility] [address] [place] [address] 10/09/2022 10:56:57 10/09/2022 11:44:56 [id number] Tavares Hooks DO [facility] [address] [place] [address] 05/11/2022 00:00:00 05/11/2022 20:26:39 [id number] Chavez-Osmel Hooks, DO [facility] [place] [address] [facility] [place] [address] 06/01/2022 00:00:00 06/01/2022 19:00:00 [id number] Tavares Hooks, DO [facility] [place] [address] [place] [address] 07/10/2022 00:00:00 07/10/2022 12:09:58 [id number] Tavares Hooks, DO [facility] [place] [address] [place] [address] 10/09/2022 00:00:00 10/10/2022 14:20:14 Health Concerns Section Related Observation LastModified by Organization Detai ls LastModified Time None Recorded Concern Status LastModified by Organization Details LastModified Time None Recorded Advance Directives Directive None Recorded Payers Insurance Date Sequence Insurance Name Policy Number Policy Maloney Covered Member ID Maloney Member ID Guarantor Name 10/12/2022 1 [employer] (MEDICARE REPLACEMENT PPO) [id number] Barbara Bagley [id number] Barbara Bagley 04/21/2022 1 *SELF PAY* Mateo Bagley Notes Date Note Type Note Provider Name and Address Organization Details Recorded Time 05/11/2022 text/html Generic HPI TemplateReported bypatient.Notes: 2: states she is doing well since Sx. she has minor discomfort only upon certain movements that is controlled with tylenol. denies any numbness and tingling. denies swelling. she remains WB at 50% in LLE and presents in chair. Chavez-Osmel Hooks, [address] [employer] [address], [place], [address], [facility] [facility] 05/11/2022 20:26:39 [...] therapy a total of 6 visits completed. Tavares HooksDO benjamin [address],[facility], [place], [address], [facility] [facility] 06/01/2022 19:00:00 07/10/2022 text/html Generic HPI TemplateReported bypatient.Location:lef t hip/pelvis Quality:aching Severity:mild pain Duration:occasional Onset/Timing:DOS 04/20/22 Context:s/p hip CRPP Aggravating factors:exercise Alleviating factors:TylenolNotes:: s/p lt hip CRPP DOS 04/20/22- patient states feels good [place] [id number], [place], [address], [facility] [employer] [facility] 07/10/2022 12:09:58 10/09/2022 text/html Generic HPI TemplateReported bypatient.Location:lef t hip/pelvis Quality:aching Severity:mild pain Duration:occasional Onset/Timing:DOS 04/20/22 Context:s/p hip CRPP Aggravating factors:exercise Alleviating factors:TylenolNotes:1 12/10/21: s/p lt hip CRPP DOS 04/20/22- patient states she is feeling great no issues. ambulates with a walker., Tavares CoulterDO benjamin [address],[facility] [employer] [facility], [place], [address], [facility] - [facility] [employer] [facility] 10/10/2022 14:20:14 OBGyn Episode No OBEpisode recorded.
== END 2025-03-12 16:10 | disposition home or self-care (01) ==
LOC: HO.HSMS 13:58
PROVIDERS: PCP Family Medicine; Visit Provider Psychiatry & Neurology Neurology
DX: G20.C Parkinsonism, unspecified (principal); R41.89 Other symptoms and signs involving cognitive functions and awareness; R44.3 Hallucinations, unspecified; G47.52 REM sleep behavior disorder
CPT/HCPCS: 99214

== ENCOUNTER → 2025-03-12 13:58 | Outpatient (BNVA) | payer MEDICARE, SELFPAY | PROVIDERS: PCP Family Medicine; Visit Provider Psychiatry & Neurology Neurology ==